=== PATIENT | male | born 1960 | race Caucasian/White ===

== ENCOUNTER 2018-04-01 06:42 | Observation (INO) ==
[2018-04-01 07:59] LABS: Basophils % 0.8 %; Eosinophils # 0.1 K/mcL (0.0-0.6); Eosinophils % 2.4 %; Hematocrit 29.6 % (37.5-50.1); Hemoglobin 9.5 g/dL (12.9-16.9); Immature Granulocytes % 0.3 % (0-4); Lymphocytes # 1.1 K/mcL (0.6-4.6); Lymphocytes % 29.5 %; Mean Corpuscular HGB Conc 32.1 g/dL (31.6-35.5); Mean Corpuscular Hemoglobin 29.8 pg (28.0-33.3); Mean Corpuscular Volume 92.8 fL (83.0-100.0); Monocytes # 0.6 K/mcL (0.0-1.3); Monocytes % 15.7 %; Neutrophils # 1.9 K/mcL (1.6-8.9); Platelet Count 153 K/mcL (140-400); Red Blood Count 3.19 M/mcL (4.19-5.50); Red Cell Distribution Width 16.4 % (11.5-14.5); Segmented Neutrophils % 51.3 %
[2018-04-01] MEDS ORDERED: *HR* FentaNYL (PF) 100 MCG/2 ML VIAL IVP ONE ×3 (08:06→10:40)
[2018-04-01] MEDS ORDERED: *HR* Midazolam HCl 2 MG/2 ML VIAL IVP ONE (08:06)
[2018-04-01] MEDS ORDERED: Ampicillin/Sulbactam 1,500 MG in 0.9 % Sodium Chloride Mini Bag 100 ML IVPB ONE (08:08)
[2018-04-01] MEDS ORDERED: Pantoprazole 40 MG VIAL IVP ONE (08:09)
[2018-04-01] MEDS ORDERED: Ondansetron 4 MG/2 ML VIAL IVP ONE (08:10)
[2018-04-01] MEDS ORDERED: Hydrocortisone Sodium Succ 100 MG/2 ML VIAL IVP ONE (08:11)
[2018-04-01] MEDS ORDERED: 0.9 % Sodium Chloride 1,000 ML ONE (08:27)
[2018-04-01] MEDS ORDERED: Isovue-300 50 ML VIAL IVP ONE (09:10)
--- NOTE | 2018-04-01 10:11 | Pre-Sedation Evaluation ---
Pre-sedation evaluation - Pre-sedation checklist Date of procedure: 04/01/18 Procedure: y-90 Recent Vitals: Last Vital Signs Temp 97.8 F 04/01/18 07:44 Pulse 51 04/01/18 09:50 Resp 23 04/01/18 09:50 BP 174/87 04/01/18 09:50 Pulse Ox 98 04/01/18 09:50 H&P (including ROS) documented in medical record: Yes Previous reaction to sedatives/anesthetics: No Dietary Status: NPO after Midnight Airway Assessment: Patient can open mouth completely, TMJ function normal, Micrognathia (under-bite, receding chin) absent, Neck with adequate range of motion Dentition: No loose teeth or bridges Possible difficult airway: No ASA Classification *see protocol: CLASS III-Severe systemic disease Plan of Care: Pt appropriate candidate for procedure/moderate/conscious sedation , Risks/benefits of procedure/sedation discussed w/ patient/family, If not NPO; Risk of intake outweiged by necessity to perform procedure Cardiac Registry (Cardio Only) - Functional Capacity - Clincal Frailty Scale
--- NOTE | 2018-04-01 10:14 | History & Physical Report ---
Date of Encounter: 04/01/18 Time of Encounter: 08:00 24 Hour HP Update - Instructions Instructions: If the History and Physical is less than 30 days old and was completed prior to A.M. admission and or procedure and has NOT been updated on calendar day of procedure please complete this update prior to performing procedure. - Update Patient reports changes in Medical Condition: No Changes in examination, assessment, or condition: No Changes in Medication: No Preop tests/diagnostics Reviewed: Yes Surgery Remains Indicated: Yes Consent for Planned Operative Procedure(s) Verified: Yes - Pre-Operative Checklist Preoperative Checklist Indicated: Yes Prophylactic Antibiotic Ordered: Yes Home Medications Include Beta Merlyn: No Is VTE Prophylaxis Indicated?: NO
[2018-04-01] MEDS ORDERED: Acetaminophen 325 MG TABLET PO PRN (10:16)
--- NOTE | 2018-04-01 10:16 | IR Procedure Note ---
Date of procedure: 04/01/18 Consent Obtained: Written consent Timeout: Correct patient and procedure verified, Correct site verified, Time out performed, Skin prep completed Local anesthetic: Lidocaine 1% Indications: Hepatocellular carcinoma Procedure Performed: Y90 embolization, bland embolization Was there an commercial loan assistant present: No Site/Technique: R lobe y90, segmental branch left lobe bland embo Results/Findings: Worked well. Full dose delivered. Estimated blood loss (cc): 3 Complications: None; Tolerated procedure well Post Procedure Treatment Plan: Monitoring in VIR Specimen: N/a
[2018-04-01] MEDS ORDERED: *HR* FentaNYL (PF) 100 MCG/2 ML VIAL ONE (10:35)
[2018-04-01] MEDS ORDERED: *HR* HYDROmorphone (PF) 1 MG/ML SYRINGE ONE (11:15)
[2018-04-01] MEDS ORDERED: *HR* HYDROmorphone 2 MG/ML SYRINGE IVP ONE (11:35)
[2018-04-01] MEDS ORDERED: Naloxone 0.4 MG/ML INJ IVP PRN ×2 (14:29→14:34)
[2018-04-01] MEDS ORDERED: Ondansetron 4 MG/2 ML VIAL IVP PRN (14:34)
[2018-04-01] MEDS ORDERED: OXYCODONE Oral CONC 10 MG/0.5 ML ORAL.SYG SL PRN ×2 (14:34)
[2018-04-01] MEDS: Metoprolol XL (24 HR) Succ 25 MG TAB.ER.24H PO SCH (15:48)
--- NOTE | 2018-04-01 18:42 | Internal Med History&Physical ---
Date of Encounter: 04/01/18 Time of Encounter: 12:00 Internal Medicine - H&P: HPI Chief complaint: Abd pain Admitted From: Home Plans for Post Hospital Care: Home History of present illness: Mr. Coronel is a 58 year old male directly admitted from IR for abdominal pain. Past medical history is significant for hep C, cirrhosis, and HCC. Patient has HCC and underwent embolization today. After procedure, patient complaining of abdominal pain, need IV pain medications. Patient complaint of epigastric area pain without rebound or guarding on exam. Patient said he does not have similar pain before the procedure. Patient denies nausea, vomiting. IR Dr Alcazar called me and plan to keep patient in hospital for further observation. IR will follow up and back up. Discussed with Dr Alcazar, after embolization, it is common to have abd pain or low fever. IR will reevaluate pt tomorrow morning. Past Med Surg Social Fam HX - Past Medical History Medical history: arthritis, cirrhosis, COPD, coronary artery disease, GERD, hepatitis, hyperlipidemia, hypertension, liver disease, myocardial infarction, other Additional medical history: LIVER MASS,erectile dysfunction,iron deficiency, recurrent GI bleed,chronic liver disease,history of alcohol abuse,status post coronary artery stent placement,anemic,history of basal cell carcinoma -left medial cheek Psychiatric history: no psych history - Past Surgical History Surgical History: angioplasty/stent, colectomy, colostomy, herniorrhaphy, other Additional surgical history: cardiac cath,bladder surgery,ventral hernia repair, fistula repeat,Justin's Procedure/cystorrhaphy,EGD/colonoscopy,colostomy reversal sigmoid to rectum anastomosis,debridement of anterior abdominal wall wound,fibrin gluing of entercutaneous fistula, - Social History Smoking Status: Current every day smoker Smokeless Tobacco Status: Yes (1) Alcohol use: heavy Drug use: none - Family History Mother Living Status: Hx Family Cardiac Disorders: Yes Father Living Status: Age at : 82 Cause of : Colon cancer Hx Family Cardiac Disorders: Yes (CHF and CAD) Hx Family Cancer: Yes Brother Living Status: Still Living Hx Family Cardiac Disorders: Yes (Open heart surgery) Internal Medicine - H&P: Meds Aspirin [Lo-Dose Aspirin EC] 81 mg PO DAILY 04/01/18 [History] Atorvastatin Calcium [Lipitor] 20 mg PO HS 04/01/18 [History] Metoprolol XL (24 HR) Succ [Toprol Xl] 25 mg PO DAILY 04/01/18 [History] Omeprazole [PriLOSEC] 20 mg PO DAILY 04/01/18 [History] 3 Allergy/AdvReac Type Severity Reaction Status Date / Time No Known Allergies Allergy Verified 04/01/18 14:22 All Systems PM: A 10-system review of systems was performed and is negative for pertinent findings except as documented above in the HPI. - Constitutional Vitals: Temp Pulse Resp BP Pulse Ox 97.8 F 55 18 190/90 95 04/01/18 15:24 04/01/18 15:24 04/01/18 15:24 04/01/18 15:13 04/01/18 15:24 General appearance: Present: A&O X 3, no acute distress, answers questions appropriately - Head Head exam: Present: atraumatic, normocephalic - Eye Eye exam: Present: PERRL, conjuntiva pink, sclera anicteric Pupils: Present: PERRL - Neck Neck exam general surgery: Present: supple, trachea midline. Absent: lymphadenopathy - Respiratory Respiratory exam: Present: CTAB. Absent: accessory muscle use, rales, rhonchi, wheezes - Cardiovascular Cardiovascular exam: Present: RRR, +S1, +S2. Absent: diastolic murmur, gallop, rubs, systolic murmur - GI/Abdominal GI/Abdominal exam: Present: normal bowel sounds, soft, tenderness (Mild epigastric tenderness without rebound or guarding), no peritoneal signs. Absent : distended - Extremities Exam Extremities exam: Present: warm, radial pulses palpable and symmetrical. Absent : calf tenderness, cyanotic, pedal edema - Neurological Exam Neurological exam: Present: CN II-XII intact, oriented X3, no focal deficits. Absent: pronater drift, facial droop, speech deficit - Skin Skin exam: Present: dry, intact Internal Med - H&P Results - Labs CBC & Chem 7: 04/01/18 07:43 Labs: Short CBC 04/01/18 Range/Units 07:43 WBC 3.7 L (4.3-11.1) K/mcL Hgb 9.5 L (12.9-16.9) g/dL Hct 29.6 L (37.5-50.1) % Plt Count 153 (140-400) K/mcL Neutrophils # 1.9 (1.6-8.9) K/mcL - Impressions ITS Impressions Embolization 04/01/18 00:00 IMPRESSION: Successful radioembolization of the right hepatic lobe as described above. Successful bland embolization of a segmental 8 branch arising from the left hepatic artery. D/ /01/2018 12:48:32 Janak Alcazar MD / tracy Interpreting Provider: Janak Alcazar MD Embolization 04/01/18 00:00 IMPRESSION: Successful radioembolization of the right hepatic lobe as described above. Successful bland embolization of a segmental 8 branch arising from the left hepatic artery. D/ /01/2018 12:48:32 Janak Alcazar MD / tracy Interpreting Provider: Janak Alcazar MD Guidance Ultrasound 04/01/18 00:00 IMPRESSION: Successful radioembolization of the right hepatic lobe as described above. Successful bland embolization of a segmental 8 branch arising from the left hepatic artery. D/ /01/2018 12:48:32 Janak Alcazar MD / tracy Interpreting Provider: Janak Alcazar MD SPECT Scan-Liver Nuclear Medicine 04/01/18 00:00 IMPRESSION: No concerning extrahepatic uptake identified following radio embolization. Dominant uptake in the right hepatic lobe with focal areas of concentrated increased radiotracer uptake in this patient with hepatocellular carcinoma. D/ / Janak Alcazar MD / Janak Alcazar MD Interpreting Provider: Janak Alcazar MD - Assessment and plan (1) Abdominal pain Current Visit: Yes Status: Acute Assessment and plan: Most likely due to HCC embolization. - Place patient on continuous cardiac and pulmonary monitoring. - Pain management as needed - IR consult to follow. - Repeat lab in a.m. Qualifiers: Abdominal location: epigastric Qualified Code(s): R10.13 - Epigastric pain (2) HCC (hepatocellular carcinoma) Current Visit: No Status: Acute Assessment and plan: S/P embolization, follow-up as outpatient after discharge (3) Hypertension Current Visit: No Status: Chronic Assessment and plan: Continue home medications. Hydralazine IV as needed Qualifiers: Hypertension type: essential hypertension Qualified Code(s): I10 - Essential (primary) hypertension - Time Spent With Patient Total time spent is greater than 50% in coordination of care (as documented) at patient's floor/unit and/or counseling patient: 30 min 25 - 35 minutes
[2018-04-02] MEDS: Ibuprofen 400 MG TABLET PO PRN ×2 (00:14→07:58)
[2018-04-02 06:09] LABS: Basophils % 0.3 %; Eosinophils # 0.1 K/mcL (0.0-0.6); Hematocrit 25.4 % (37.5-50.1); Hemoglobin 8.1 g/dL (12.9-16.9); Immature Granulocytes % 0.3 % (0-4); Lymphocytes # 0.9 K/mcL (0.6-4.6); Lymphocytes % 25.7 %; Mean Corpuscular HGB Conc 31.9 g/dL (31.6-35.5); Mean Corpuscular Hemoglobin 28.6 pg (28.0-33.3); Mean Corpuscular Volume 89.8 fL (83.0-100.0); Mean Platelet Volume 11.1 fL (9.4-12.4); Monocytes # 0.4 K/mcL (0.0-1.3); Monocytes % 12.3 %; Neutrophils # 2.1 K/mcL (1.6-8.9); Platelet Count 120 K/mcL (140-400); Red Blood Count 2.83 M/mcL (4.19-5.50); Red Cell Distribution Width 16.6 % (11.5-14.5); Segmented Neutrophils % 59.4 %
[2018-04-02 06:34] LABS: Alanine Aminotransferase 32 Units/L (7-52); Albumin 3.1 g/dL (3.5-5.7); Albumin/Globulin Ratio 1.1 (1.1-2.2); Alkaline Phosphatase 93 Units/L (34-104); Aspartate Amino Transferase 56 Units/L (13-39); BUN/Creatinine Ratio 23 (6-26); Bilirubin,Total 0.5 mg/dL (0.3-1.0); Blood Urea Nitrogen 13 mg/dL (8-23); Carbon Dioxide 23 mEq/L (23-29); Chloride 105 mEq/L (98-107); Globulin 2.8 g/dL (2.4-3.5); Glucose 168 mg/dL (70-105); Osmolality,Calculated 282 (280-300); Potassium 3.6 mEq/L (3.5-5.1); Sodium 134 mEq/L (136-145); Total Protein 5.9 g/dL (6.4-8.9); eGFR For Non-African Americans > 60 (> 60)
[2018-04-02 06:37] VITALS: BP 133/73
[2018-04-02] MEDS: Metoprolol XL (24 HR) Succ 25 MG TAB.ER.24H PO SCH (07:59)
[2018-04-02] MEDS ORDERED: Aspirin Enteric Coated 81 MG Tablet PO SCH (09:00)
--- NOTE | 2018-04-02 10:05 | Discharge Summary ---
<Bora Carmen - Last Filed: 04/02/18 16:18> - NOTES TO OUTPATIENT PROVIDER Notes to Outpatient Provider: Patient's post-procedural pain abdominal pain completely resolved with Motrin. He states he will pick this up over the counter. Date of Encounter: 04/02/18 Time of Encounter: 10:03 - Discharge Diagnosis (1) Abdominal pain Priority: Primary Status: Acute Qualifiers: Abdominal location: epigastric Qualified Code(s): R10.13 - Epigastric pain (2) HCC (hepatocellular carcinoma) Priority: Secondary Status: Acute (3) Cirrhosis Priority: Secondary Status: Chronic Qualifiers: Hepatic cirrhosis type: alcoholic cirrhosis Ascites presence: without ascites Qualified Code(s): K70.30 - Alcoholic cirrhosis of liver without ascites Hospital course: Mr. 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 Patient received moderate sedation and had successful embolization of the right hepatic lobe as well as a segmental branch of the left hepatic artery that was also found to be feeding the mass. Patient felt feverish and developed abdominal pain after the procedure, afebrile with elevated blood pressure readings. Internal medicine was consulted to manage, pain was relieved with Ibuprofen, received hydralizine for elevated~BP. Patient now normotensive, abdominal pain resolved. IR did come by and see patient and confirmed patient was stable for discharge. Discharge discussed with: patient, nurse, systems security consultant - Time Spent with Patient Total time spent providing and/or coordinating discharge services: Less than 30 minutes - Discharge Medications Home Medications: Aspirin [Lo-Dose Aspirin EC] 81 mg PO DAILY 04/01/18 [History] Atorvastatin Calcium [Lipitor] 20 mg PO HS 04/01/18 [History] Metoprolol XL (24 HR) Succ [Toprol Xl] 25 mg PO DAILY 04/01/18 [History] Omeprazole [PriLOSEC] 20 mg PO DAILY 04/01/18 [History] Allergies/Adverse Reactions: 3 Allergy/AdvReac Type Severity Reaction Status Date / Time No Known Allergies Allergy Verified 04/01/18 14:22 Date of admission: 04/01/18 13:04 Primary care physician: Kenzie Junior MD Consults: 04/01/18 14:41 Consult to Interventional Radiology [CONS] Routine Consulting Provider: Radiology Interventional Cols Reason for Consult: S/P embolization Call Completed: Yes Discharging clinician: Bora Carmen Anticipated date of discharge: 04/02/18 - Constitutional Vitals: Temp Pulse Resp BP Pulse Ox 97.8 F 57 18 133/73 95 04/02/18 06:36 04/02/18 06:36 04/02/18 06:36 04/02/18 06:36 04/02/18 06:36 General appearance: Present: cooperative, no acute distress, answers questions appropriately - Head Head exam: Present: atraumatic, normocephalic - Eye Eye exam: Present: PERRL, conjuntiva pink, sclera anicteric Pupils: Present: PERRL - Neck Neck exam general surgery: Present: supple, trachea midline. Absent: lymphadenopathy - Respiratory Respiratory exam: Present: CTAB. Absent: accessory muscle use, rales, rhonchi, wheezes - Cardiovascular Cardiovascular exam: Present: RRR, +S1, +S2. Absent: diastolic murmur, gallop, rubs, systolic murmur - GI/Abdominal GI/Abdominal exam: Present: normal bowel sounds, soft, no peritoneal signs. Absent: distended, tenderness - Extremities Exam Extremities exam: Present: warm, radial pulses palpable and symmetrical. Absent : calf tenderness, cyanotic, pedal edema - Neurological Exam Neurological exam: Present: alert, no focal deficits. Absent: pronater drift, facial droop, speech deficit - Skin Skin exam: Present: dry, intact - Patient Status Disposition: Home, Self-Care Condition: Good Functional capacity at discharge: independent ambulation Overall status at discharge: patient is back to baseline - Discharge Instructions Instructions: Acute Abdominal Pain (DC) Follow Up With: Eri Brown MORGUE TECHNICIAN [Advanced Practice Nurse] - 04/09/18 2:15 pm (Office is going to call the patient today.) Additional Instructions: Lab work in 3 days. No driving for one week. No lifting more than 5 lbs for one week. Hold site when coughing. - Diet and Activity Activity: increase activity as tolerated Diet: advance to your usual diet <Adrianna Steiner - Last Filed: 04/02/18 19:00> Date of Encounter: 04/02/18 - Discharge Diagnosis (1) Hypertension Status: Chronic Qualifiers: Hypertension type: essential hypertension Qualified Code(s): I10 - Essential (primary) hypertension (2) HCC (hepatocellular carcinoma) Status: Acute (3) Abdominal pain Status: Acute Qualifiers: Abdominal location: epigastric Qualified Code(s): R10.13 - Epigastric pain Hospital course: Mr. Coronel is a 58 year old male - Time Spent with Patient Total time spent providing and/or coordinating discharge services: Date of admission: 04/01/18 13:04 Primary care physician: Kenzie Junior MD Consults: 04/01/18 14:41 Consult to Interventional Radiology [CONS] Routine Consulting Provider: Radiology Interventional Cols Reason for Consult: S/P embolization Call Completed: Yes - Constitutional Vitals: Temp Pulse Resp BP Pulse Ox 97.8 F 57 18 133/73 95 04/02/18 06:36 04/02/18 06:36 04/02/18 06:36 04/02/18 06:36 04/02/18 06:36 - Attending Attestation I examined this patient and my medical decision-making was reviewed with the Resident Physician Dr. Pollack. I agree with the documented findings, disposition and treatment plan as described except to the extent set forth below.
== END 2018-04-02 10:49 | disposition home or self-care (01) ==
LOC: 3BNU 06:42 → INTRAD 06:42
PROVIDERS: ADMIT Internal Medicine; ATTEND Internal Medicine

== ENCOUNTER 2018-05-20 07:07 | Observation (INO) ==
[2018-05-20 08:51] LABS: INR 1.1
[2018-05-20 08:54] LABS: Activated Partial Thrombo Time 29.6 Seconds (26.0-36.0)
[2018-05-20 08:55] LABS: Hematocrit 21.7 % (37.5-50.1); Hemoglobin 6.4 g/dL (12.9-16.9); Mean Corpuscular HGB Conc 29.5 g/dL (31.6-35.5); Mean Corpuscular Hemoglobin 24.8 pg (28.0-33.3); Mean Corpuscular Volume 84.1 fL (83.0-100.0); Mean Platelet Volume 12.4 fL (9.4-12.4); Platelet Count 165 K/mcL (140-400); Red Blood Count 2.58 M/mcL (4.19-5.50); Red Cell Distribution Width 16.6 % (11.5-14.5)
[2018-05-20 09:05] LABS: BUN/Creatinine Ratio 19 (6-26); Blood Urea Nitrogen 12 mg/dL (8-23); Calcium 8.4 mg/dL (8.6-10.3); Carbon Dioxide 21 mEq/L (23-29); Chloride 109 mEq/L (98-107); Glucose 195 mg/dL (70-105); Magnesium 1.8 mg/dL (1.6-2.6); Osmolality,Calculated 287 (280-300); Sodium 136 mEq/L (136-145); eGFR For Non-African Americans > 60 (> 60)
[2018-05-20 09:36] LABS: Anisocytosis 1+ (Not Present); Lymphocytes # 0.7 K/mcL (0.6-4.6); Monocytes # 0.3 K/mcL (0.0-1.3); Neutrophils # 1.1 K/mcL (1.6-8.9); Platelet Estimate Normal (Normal); Polychromasia 1+ (Not Present)
[2018-05-20 09:37] LABS: Hypochromasia Present (Not Present)
[2018-05-20] MEDS ORDERED: Naloxone 0.4 MG/ML INJ IVP PRN (10:02)
--- NOTE | 2018-05-20 10:07 | Emergency Department Note ---
Disposition Clinical Impression: Anemia Disposition: Admitted As Inpatient Condition: Fair Referrals: Eri Brown [employer] [Primary Care Provider] - Time of Disposition: 10:27 Recheck wound or abnormal lab - General Chief Complaint: ED Recheck/Abnormal Lab/Rx Stated Complaint: Abnormal Labs Low Hemoglobin Time Seen by Provider: 05/20/18 07:19 Source: patient Mode of arrival: ambulatory Limitations: no limitations Nursing Notes Reviewed: Yes Vital Signs Reviewed: Yes - History of Present Illness HPI Narrative: Patient presents emergency room today for evaluation of anemia. Patient has a chronic issue of anemia that required blood transfusion secondary to liver cancer. Patient denies any blood in his stool dark colored stool bleeding in his urine or hematemesis. Patient denies any other symptoms or complaints he just had a random blood draw completed secondary to his primary care wanting evaluation and his hemoglobin was low. Pt Subjective Complaint: abnormal lab(s) Symptoms Since Prior Visit: no new symptoms Associated symptoms: none - Related Data Home Medications Medication Instructions Recorded Confirmed Aspirin [Lo-Dose Aspirin EC] 81 mg PO DAILY 04/01/18 05/20/18 Atorvastatin Calcium [Lipitor] 20 mg PO HS 04/01/18 05/20/18 Metoprolol XL (24 HR) Succ [Toprol 25 mg PO DAILY 04/01/18 05/20/18 Xl] Omeprazole [PriLOSEC] 20 mg PO DAILY PRN 04/01/18 05/20/18 Allergies Allergy/AdvReac Type Severity Reaction Status Date / Time No Known Allergies Allergy Verified 05/20/18 09:33 All systems ED: reviewed and negative except as stated. Review of Systems: As Per HPI Constitutional: Denies: fever, chills, weakness Cardiovascular: Denies: chest pain, palpitations, dyspnea on exertion, orthopnea , edema Respiratory: Denies: cough, dyspnea, wheezes Gastrointestinal: Denies: abdominal pain, nausea, vomiting, diarrhea, constipation, hematemesis, melena, hematochezia Genitourinary: Denies: urgency, dysuria Musculoskeletal: Denies: back pain, neck pain Neurological: Denies: headache, weakness Psychiatric: Denies: anxiety Hematological/Lymphatic: Denies: easy bleeding, easy bruising Past Medical History - Past Medical History Attestation: Yes The following information was validated with the patient. Source: patient Medical history: Reports: arthritis, cirrhosis, COPD, coronary artery disease, GERD, hepatitis, hyperlipidemia, hypertension, liver disease, myocardial infarction, other Surgical history: Reports: angioplasty/stent, colectomy, colostomy, herniorrhaphy, other Psychiatric history: Reports: no psych history - Social History Smoking Status: Current every day smoker Smokeless Tobacco Status: Yes (1) Alcohol use: Reports: heavy Drug use: Reports: none Physical Exam - General Limitations: no limitations - Head Head exam: atraumatic, normocephalic, normal inspection - Eye Eye exam: Present: normal appearance, PERRL, EOMI, other - ENT ENT exam: normal exam, normal oropharynx, mucous membranes moist - Neck Neck exam: Present: normal inspection, full ROM, trachea midline - Chest Chest inspection: Present: normal inspection, symmetric chest wall rise - Respiratory Respiratory exam: Present: normal lung sounds bilaterally - Cardiovascular Cardiovascular exam: Present: regular rate, normal rhythm, normal heart sounds - Abdominal Exam Abdominal exam: Present: soft, distention, normal bowel sounds. Absent: tenderness, guarding, rebound, diminished bowel sounds, hyperactive bowel sounds , trauma - Extremities Exam Extremities exam: Present: normal inspection, full ROM, normal capillary refill. Absent: tenderness, pedal edema - Back Exam Back exam: Present: normal inspection, full ROM. Absent: tenderness - Neurological Exam Neurological exam: Present: alert, oriented X3, CN II-XII intact, normal gait - Skin Skin exam: Present: warm, dry, intact, pallor Course Course Narrative: 58-year-old male presents emergency room for complaint of abnormal lab. Have blood drawn yesterday and had a hemoglobin of 6.4. Patient is a long-standing history of chronic anemia that has multiple antibodies for transfusion. Vital signs are stable. Patient denies any other complaints. He has not had any hematemesis, coffee-ground emesis, hematochezia, melena. He says this is a chronic issue with his blood count trickles down and then he requires a transfusion. He has known liver disease and cancer that he is in the process of determining whether or not he is a candidate for liver transplant. Patient will have repeat labs and coagulation studies completed here today along with type and screen. Blood transfusion will be ordered based on review the labs from yesterday. Patient has no other acute issues at this point. Lungs are clear heart is regular. Conjunctiva is pale. His skin is normal and presentation has good pulses in the bilateral upper and lower extremities. Disposition will be determined once blood typing and labs are resulted. No other acute issues at this time. - Reevaluation(s) Reevaluation #1: Patient found to have a hemoglobin of 6.4 again here today which is stable in comparison to the previous. Patient will have 2 units of blood transfused once they are available. According to the blood bank that takes approximately 24 hours to get his blood secondary to the antibodies. Because of this the patient will be admitted to the hospital for continuation of care. Hospitalist Dr. Mcnulty and I reviewed the case at length. He has no other questions or concerns. Patient is otherwise clinically stable and will be admitted for continuation of care in a blood transfusion Time: 10:18 Vital Signs Temperature 98.3 F 05/20/18 07:09 Pulse Rate 83 05/20/18 07:09 Respiratory Rate 17 05/20/18 07:09 Blood Pressure 153/85 05/20/18 07:09 O2 Sat by Pulse Oximetry 100 05/20/18 07:09 Temperature 98.3 F 05/20/18 07:27 Pulse Rate 74 05/20/18 08:37 Respiratory Rate 18 05/20/18 08:37 Blood Pressure 119/64 05/20/18 08:37 O2 Sat by Pulse Oximetry 100 05/20/18 08:37 Oxygen Delivery Oxygen Delivery Room Air Recheck wound or abnormal lab - MDM Narrative Medical decision making narrative: Chronic anemia, blood transfusion - Medical Records Medical records reviewed: Yes I reviewed the patient's medical records. - Lab Data Lab results reviewed: Yes I reviewed the patient's lab results. Result diagrams: 05/20/18 08:31 05/20/18 08:31 Lab Results 05/20/18 05/20/18 05/20/18 Range/Units 08:31 08:31 08:31 WBC 2.2 L (4.3-11.1) K/mcL RBC 2.58 L (4.19-5.50) M/mcL Hgb 6.4 L (12.9-16.9) g/dL Hct 21.7 L (37.5-50.1) % MCV 84.1 (83.0-100.0) fL MCH 24.8 L (28.0-33.3) pg MCHC 29.5 L (31.6-35.5) g/dL RDW 16.6 H (11.5-14.5) % Plt Count 165 (140-400) K/mcL MPV 12.4 (9.4-12.4) fL Immature Gran % Test Not Performed Seg Neutrophils % 50.0 % Band Neutrophils % 2.0 (0-4) % Lymphocytes % 30.0 % Monocytes % 14.0 % Eosinophils % 2.0 % Basophils % 2.0 % Neutrophils # 1.1 L (1.6-8.9) K/mcL Lymphocytes # 0.7 (0.6-4.6) K/mcL Monocytes # 0.3 (0.0-1.3) K/mcL Eosinophils # 0.0 (0.0-0.6) K/mcL Basophils # 0.0 (0.0-0.2) K/mcL Platelet Estimate Normal (Normal) Polychromasia 1+ A (Not Present) Hypochromasia Present A (Not Present) Anisocytosis 1+ A (Not Present) PT 12.0 (9.4-12.1) Seconds INR 1.1 APTT 29.6 (26.0-36.0) Seconds Sodium 136 (136-145) mEq/L Potassium 4.0 (3.5-5.1) mEq/L Chloride 109 H (98-107) mEq/L Carbon Dioxide 21 L (23-29) mEq/L BUN 12 (8-23) mg/dL Creatinine 0.62 L (0.70-1.30) mg/dL Est GFR ( Amer) > 60 (> 60) Est GFR (Non-Af Amer) > 60 (> 60) BUN/Creatinine Ratio 19 (6-26) Glucose 195 H (70-105) mg/dL Calculated Osmolality 287 (280-300) Lactic Acid (0.5-2.2) mmol/L Calcium 8.4 L (8.6-10.3) mg/dL Magnesium 1.8 (1.6-2.6) mg/dL Blood Type Antibody Screen MTS Gel Crossmatch 05/20/18 05/20/18 Range/Units 08:31 08:31 WBC (4.3-11.1) K/mcL RBC (4.19-5.50) M/mcL Hgb (12.9-16.9) g/dL Hct (37.5-50.1) % MCV (83.0-100.0) fL MCH (28.0-33.3) pg MCHC (31.6-35.5) g/dL RDW (11.5-14.5) % Plt Count (140-400) K/mcL MPV (9.4-12.4) fL Immature Gran % Seg Neutrophils % % Band Neutrophils % (0-4) % Lymphocytes % % Monocytes % % Eosinophils % % Basophils % % Neutrophils # (1.6-8.9) K/mcL Lymphocytes # (0.6-4.6) K/mcL Monocytes # (0.0-1.3) K/mcL Eosinophils # (0.0-0.6) K/mcL Basophils # (0.0-0.2) K/mcL Platelet Estimate (Normal) Polychromasia (Not Present) Hypochromasia (Not Present) Anisocytosis (Not Present) PT (9.4-12.1) Seconds INR APTT (26.0-36.0) Seconds Sodium (136-145) mEq/L Potassium (3.5-5.1) mEq/L Chloride (98-107) mEq/L Carbon Dioxide (23-29) mEq/L BUN (8-23) mg/dL Creatinine (0.70-1.30) mg/dL Est GFR ( Amer) (> 60) Est GFR (Non-Af Amer) (> 60) BUN/Creatinine Ratio (6-26) Glucose (70-105) mg/dL Calculated Osmolality (280-300) Lactic Acid 1.7 (0.5-2.2) mmol/L Calcium (8.6-10.3) mg/dL Magnesium (1.6-2.6) mg/dL Blood Type A POSITIVE Antibody Screen POSITIVE MTS Gel Crossmatch See Detail - Radiology Data Radiology results reviewed: Yes I reviewed the patient's radiology results. X-ray is unremarkable for acute intrathoracic related etiology - EKG Data EKG attestation: Yes I reviewed and interpreted this EKG. EKG results narrative: EKG shows sinus rhythm with heart rate of 71. SD interval 196. QTC of 410. QTC of 446. Intermittent P ACEs are noted on evaluation but otherwise no acute signs of ST segment elevation or abnormality. No acute signs of WPW or Brugada. T-wave inversion is noted in aVL that is chronic from an EKG on . No other acute morphology issues. Preston appears to be normal. Critical Care Time Critical Care Time: Yes Total Critical Care Time: 35 Attestation: Critical care performed: Time is exclusive of separately billable procedures. Time includes: direct patient care, patient reassessment, coordination of patient care, interpretation of data (laboratory data, radiology data, and respiratory data), review of patient's medical records, medical consultation and documentation of patient care. Procedures included in critical care time: Procedures excluded from critical care time:
--- NOTE | 2018-05-20 10:43 | Internal Med History&Physical ---
Date of Encounter: 05/20/18 Time of Encounter: 10:25 Internal Medicine - H&P: HPI Chief complaint: Generalized weakness, low hemoglobin levels Admitted From: Emergency Dept Plans for Post Hospital Care: Home History of present illness: Mr. Coronel is a 58 year old male patient with history of hepatocellular carcinoma status post chemoembolization, liver cirrhosis status post TIPS, and chronic anemia related to his carcinoma presented to the ER with complaints of low hemoglobin levels and generalized weakness. Patient had blood work done Yesterday and was called by Dr. Bianchi to come to the ER for blood transfusion. He denies any blood in the stools. He has had extensive workup in the past but so far no source of bleeding has been identified. He had an upper GI endoscopy and colonoscopy done in February this year which was negative for any active bleeding. He denies any hematemesis or melena. No chest pain. No palpitations. No abdominal pain. He has chronic umbilical hernia from intra -abdominal surgery for colon resection for diverticulitis. Past Med Surg Social Fam HX - Past Medical History Attestation: Yes The following information was validated with the patient. Source: patient Medical history: arthritis, cirrhosis, COPD, coronary artery disease, GERD, hepatitis, hyperlipidemia, hypertension, liver disease, myocardial infarction, other Additional medical history: LIVER MASS,erectile dysfunction,iron deficiency, recurrent GI bleed,chronic liver disease,history of alcohol abuse,status post coronary artery stent placement,anemic,history of basal cell carcinoma -left medial cheek Psychiatric history: no psych history - Past Surgical History Surgical History: angioplasty/stent, colectomy, colostomy, herniorrhaphy, other Additional surgical history: cardiac cath,bladder surgery,ventral hernia repair, fistula repeat,Justin's Procedure/cystorrhaphy,EGD/colonoscopy,colostomy reversal sigmoid to rectum anastomosis,debridement of anterior abdominal wall wound,fibrin gluing of entercutaneous fistula, - Social History Smoking Status: Current every day smoker Smokeless Tobacco Status: Yes (1) Alcohol use: heavy Drug use: none - Family History Mother Living Status: Hx Family Cardiac Disorders: Yes Father Living Status: Hx Family Cardiac Disorders: Yes (CHF and CAD) Hx Family Cancer: Yes Brother Living Status: Still Living Hx Family Cardiac Disorders: Yes (Open heart surgery) Internal Medicine - H&P: Meds Aspirin [Lo-Dose Aspirin EC] 81 mg PO DAILY 04/01/18 [History] Atorvastatin Calcium [Lipitor] 20 mg PO HS 04/01/18 [History] Metoprolol XL (24 HR) Succ [Toprol Xl] 25 mg PO DAILY 04/01/18 [History] Omeprazole [PriLOSEC] 20 mg PO DAILY PRN 04/01/18 [History] 3 Allergy/AdvReac Type Severity Reaction Status Date / Time No Known Allergies Allergy Verified 05/20/18 09:33 All Systems PM: A 10-system review of systems was performed and is negative for pertinent findings except as documented above in the HPI. - Constitutional Constitutional: fatigue, malaise, weakness, no chills, no fever(s), no night sweats - EENT Eyes: no change in vision, no discharge, no pain, no photophobia Ears: no ear discharge, no ear pain, no tinnitus Nose, mouth and throat: no dysphagia, no nasal discharge, no neck pain, no sore throat - Cardiovascular Cardiovascular ROS IM: no chest pain, no diaphoresis, no dyspnea, no lightheadedness, no palpitations, no syncope - Respiratory Respiratory: no cough, no dyspnea, no wheezing, no excessive phlegm production - Gastrointestinal Gastrointestinal: no abdominal pain, no diarrhea, no hematemesis, no hematochezia, no melena, no nausea, no vomiting - Musculoskeletal Musculoskeletal ROS IM: no numbness, no tingling - Integumentary Integumentary IM: no rash, no unusual bruising - Neurological Neurological ROS: no confusion, no convulsions, no focal weakness, no numbness, no tingling, no tremor(s) - Constitutional Vitals: Temp Pulse Resp BP Pulse Ox 98.3 F 74 18 119/64 100 05/20/18 07:27 05/20/18 08:37 05/20/18 08:37 05/20/18 08:37 05/20/18 08:37 General appearance: Present: cooperative, A&O X 3, pleasant, answers questions appropriately Exam: General: Patient is alert, no acute distress, oriented x 3 Head: atraumatic, normocephalic, Eye: normal appearance, PERRL, no scleral icterus, no conjunctival injection Neck: normal inspection, trachea midline, full ROM, no carotid bruits Chest: normal inspection, symmetric chest rise Respiratory: Good respiratory effort. Normal breath sounds. No wheezing or crackles. Cardiovascular: Regular rate and rhythm. s1 and s2 normal No clicks, rubs, gallops, or murmurs. No pedal edema Abdomen: Abdomen is soft, nontender. Umbilical hernia present. Easily reducible. Bowel sounds are present Musculoskeletal: Spontaneously moving all extremities Skin: warm, dry, intact. Pallor present Neuro: Alert oriented x 3 normal cranial nerves, no focal deficits Psych: Patient's affect is normal Internal Med - H&P Results - Labs CBC & Chem 7: 05/20/18 08:31 05/20/18 08:31 - Impressions Impressions Chest X-Ray 05/20/18 07:35 IMPRESSION: No acute pulmonary finding. D/ / Van Moon MD / Van Moon MD Interpreting Provider: Van Moon MD - Assessment and plan (1) Anemia Current Visit: Yes Status: Acute Assessment and plan: Patient with acute on chronic anemia with symptoms of fatigue and generalized weakness. Hemoglobin 6.4 today. Down from 9.1 in March. Checking stool for occult blood. Patient has had upper GI endoscopy and colonoscopy done in February with no signs of active bleeding. Most likely acute on chronic anemia related to underlying hepatocellular carcinoma and cirrhosis. Will transfuse 2 units PRBC. Patient does have RBC antibodies and may have difficulty in obtaining appropriate PRBC for transfusion. Moderate risk for complications. Qualifiers: Anemia type: other cause Other causes of anemia: chronic disease, neoplastic Qualified Code(s): D63.0 - Anemia in neoplastic disease (2) Cirrhosis Current Visit: Yes Status: Chronic Assessment and plan: Continue supportive care. Start multivitamins and folic acid supplements. Qualifiers: Hepatic cirrhosis type: alcoholic cirrhosis Ascites presence: without ascites Qualified Code(s): K70.30 - Alcoholic cirrhosis of liver without ascites (3) DVT prophylaxis Current Visit: Yes Status: Acute Assessment and plan: With SCDs (4) HCC (hepatocellular carcinoma) Current Visit: Yes Status: Chronic Assessment and plan: Chronic. Status post embolization. Not on any chemotherapy (5) Pancytopenia Current Visit: No Status: Chronic Assessment and plan: Related to hepatocellular carcinoma. Platelet counts are normal at this time. Patient does have low WBC and hemoglobin levels. (6) Red blood cell antibody positive Current Visit: Yes Status: Acute Assessment and plan: Management as above - Time Spent With Patient Total time spent is greater than 50% in coordination of care (as documented) at patient's floor/unit and/or counseling patient:
[2018-05-20] MEDS ORDERED: 0.9 % Sodium Chloride 500 ML ONE (12:56)
[2018-05-20] MEDS: Prenatal Vit/FA 1 EACH TABLET PO SCH (14:58)
[2018-05-20] MEDS ORDERED: Melatonin 3 MG TABLET PO PRN (21:57)
[2018-05-21 04:40] LABS: Basophils % 0.7 %; Eosinophils # 0.1 K/mcL (0.0-0.6); Eosinophils % 3.2 %; Hematocrit 22.9 % (37.5-50.1); Hemoglobin 7.1 g/dL (12.9-16.9); Immature Granulocytes % 0.4 % (0-4); Lymphocytes # 0.6 K/mcL (0.6-4.6); Lymphocytes % 21.9 %; Mean Corpuscular Hemoglobin 26.8 pg (28.0-33.3); Mean Corpuscular Volume 86.4 fL (83.0-100.0); Mean Platelet Volume 12.4 fL (9.4-12.4); Monocytes # 0.5 K/mcL (0.0-1.3); Monocytes % 16.3 %; Neutrophils # 1.6 K/mcL (1.6-8.9); Platelet Count 129 K/mcL (140-400); Red Blood Count 2.65 M/mcL (4.19-5.50); Red Cell Distribution Width 15.9 % (11.5-14.5); Segmented Neutrophils % 57.5 %
[2018-05-21 05:02] LABS: BUN/Creatinine Ratio 24 (6-26); Blood Urea Nitrogen 14 mg/dL (8-23); Calcium 8.4 mg/dL (8.6-10.3); Carbon Dioxide 24 mEq/L (23-29); Chloride 107 mEq/L (98-107); Glucose 197 mg/dL (70-105); Osmolality,Calculated 290 (280-300); Sodium 137 mEq/L (136-145); eGFR For Non-African Americans > 60 (> 60)
[2018-05-21] MEDS ORDERED: Iron Sucrose Complex 400 MG in 0.9 % Sodium Chloride 250 ML IVPB ONE (07:47)
--- NOTE | 2018-05-21 08:54 | Electrocardiograph Report ---
[employer] Test Date: 2018-05-20 Pat Name: Patrice Coronel Department: EXAM23 Room: 3B14 Gender: M Vat Packer: : [id number] Requested By: Stephen Yeager Order Number: [id number] Reading MD: Benji Garcia Measurements Intervals [place] Rate: 71 P: 36 MN: 196 QRS: 43 QRSD: 92 T: 68 QT: 410 QTc: 446 Interpretive Statements Sinus rhythm Atrial premature complex Low voltage, precordial leads Probable anteroseptal infarct, old Electronically Signed On 05-21-2018 8:52:23 EDT by Benji Garcia
[2018-05-21 09:06] LABS: Immature Reticulocyte % 15.6 % (11.0-38.0); Retculocyte # 0.04 M/mcL (0.05-0.10); Reticulocyte % 1.6 % (1.6-2.8)
[2018-05-21] MEDS: Metoprolol XL (24 HR) Succ 25 MG TAB.ER.24H PO SCH (09:14)
[2018-05-21] MEDS: Aspirin Enteric Coated 81 MG Tablet PO SCH (09:14)
[2018-05-21] MEDS: Prenatal Vit/FA 1 EACH TABLET PO SCH (09:14)
--- NOTE | 2018-05-21 10:47 | Internal Med Progress Note ---
Hospitalist Progress Note - Encounter Date of Encounter: 05/21/18 Time of Encounter: 10:45 - Subjective Interval History: Patient seen and examined in the room, he denies dizziness, lightheadedness, or syncope. He has no fever, chills, or night sweats. - Exam Vitals: Temp Pulse Resp BP Pulse Ox 98.3 F 60 17 146/83 98 05/21/18 07:27 05/21/18 07:27 05/21/18 07:27 05/21/18 07:27 05/21/18 07:27 Exam: General: Patient is alert, no acute distress, oriented x 3 Head: atraumatic, normocephalic, Eye: normal appearance, PERRL, no scleral icterus, no conjunctival injection Neck: normal inspection, trachea midline, full ROM, no carotid bruits Chest: normal inspection, symmetric chest rise Respiratory: Good respiratory effort. Normal breath sounds. No wheezing or crackles. Cardiovascular: Regular rate and rhythm. s1 and s2 normal No clicks, rubs, gallops, or murmurs. No pedal edema Abdomen: Abdomen is soft, nontender. Umbilical hernia present. Easily reducible. Bowel sounds are present Musculoskeletal: Spontaneously moving all extremities Skin: warm, dry, intact. Pallor present Neuro: Alert oriented x 3 normal cranial nerves, no focal deficits Psych: Patient's affect is normal - Assessment and Plan (1) Anemia Current Visit: Yes Status: Acute Assessment and Plan: 58-year-old male with past medical history of HCC, cirrhosis, and a chronic anemia presented with fatigue and generalized weakness. Hemoglobin 6.4 on admission. Down from 9.1 in March. Patient has had upper GI endoscopy and colonoscopy done in February with no signs of active bleeding. Most likely acute on chronic anemia related to underlying hepatocellular carcinoma and cirrhosis. Patient does have RBC antibodies and may have difficulty in obtaining appropriate PRBC for transfusion. He received 2 units PRBC on 05/20/2018, this morning hemoglobin 7.1. We will give patient another 2 unit PRBC today. (2) Cirrhosis Current Visit: No Status: Chronic Assessment and Plan: Continue supportive care. Start multivitamins and folic acid supplements. (3) Red blood cell antibody positive Current Visit: Yes Status: Acute Assessment and Plan: Management as above (4) HCC (hepatocellular carcinoma) Current Visit: Yes Status: Chronic Assessment and Plan: Chronic. Status post embolization. Not on any chemotherapy (5) DVT prophylaxis Current Visit: Yes Status: Acute Assessment and Plan: With SCDs - Time Spent with Patient Total time spent is greater than 50% in coordination of care (as documented) at patient's floor/unit and/or counseling patient: Greater than 35 minutes Plan of Care Discussed with: patient Internal Medicine: Result - Labs CBC & Chem 7: 05/21/18 03:24 05/21/18 03:24 Labs: Short CBC 05/21/18 Range/Units 03:24 WBC 2.8 L (4.3-11.1) K/mcL Hgb 7.1 L (12.9-16.9) g/dL Hct 22.9 L (37.5-50.1) % Plt Count 129 L (140-400) K/mcL Neutrophils # 1.6 (1.6-8.9) K/mcL BMP 05/21/18 03:24 Sodium 137 Potassium 4.0 Chloride 107 Carbon Dioxide 24 BUN 14 Creatinine 0.59 L Glucose 197 H Calcium 8.4 L - ABG Interpretation ABG results: PT/INR, D-dimer PT 12.0 Seconds (9.4-12.1) 05/20/18 08:31 Consult Discharge Plan - Plan Referrals: Eri Brown, [employer] [Primary Care Provider] - (1) Anemia Qualifiers: Anemia type: other cause Other causes of anemia: chronic disease, neoplastic Qualified Code(s): D63.0 - Anemia in neoplastic disease (2) Cirrhosis Qualifiers: Hepatic cirrhosis type: alcoholic cirrhosis Ascites presence: without ascites Qualified Code(s): K70.30 - Alcoholic cirrhosis of liver without ascites
[2018-05-21] MEDS ORDERED: 0.9 % Sodium Chloride 500 ML ONE (11:34)
[2018-05-22 04:15] LABS: Hematocrit 28.3 % (37.5-50.1); Mean Corpuscular HGB Conc 31.4 g/dL (31.6-35.5); Mean Corpuscular Volume 85.8 fL (83.0-100.0); Platelet Count 126 K/mcL (140-400)
[2018-05-22 04:23] LABS: Hemoglobin 8.9 g/dL (12.9-16.9)
[2018-05-22 07:06] VITALS: BP 132/77
[2018-05-22] MEDS: Aspirin Enteric Coated 81 MG Tablet PO SCH (09:19)
[2018-05-22] MEDS: Metoprolol XL (24 HR) Succ 25 MG TAB.ER.24H PO SCH (09:19)
[2018-05-22] MEDS: Prenatal Vit/FA 1 EACH TABLET PO SCH (09:19)
--- NOTE | 2018-05-22 09:35 | Discharge Summary ---
- NOTES TO OUTPATIENT PROVIDER Notes to Outpatient Provider: f/u with PCP and oncology as scheduled. Date of Encounter: 05/22/18 Time of Encounter: 09:33 - Discharge Diagnosis (1) Anemia Priority: Primary Status: Acute Qualifiers: Anemia type: other cause Other causes of anemia: chronic disease, neoplastic Qualified Code(s): D63.0 - Anemia in neoplastic disease (2) Cirrhosis Priority: Secondary Status: Chronic Qualifiers: Hepatic cirrhosis type: alcoholic cirrhosis Ascites presence: without ascites Qualified Code(s): K70.30 - Alcoholic cirrhosis of liver without ascites (3) Red blood cell antibody positive Priority: Secondary Status: Acute (4) HCC (hepatocellular carcinoma) Priority: Secondary Status: Chronic (5) DVT prophylaxis Priority: Primary Status: Acute Hospital course: Mr. Coronel is a 58 year old male patient with history of hepatocellular carcinoma status post chemoembolization, liver cirrhosis status post TIPS, and chronic anemia related to his carcinoma presented to the ER with complaints of low hemoglobin levels and generalized weakness. Patient had blood work done yesterday and was called by Dr. Bianchi to come to the ER for blood transfusion. He denies any blood in the stools. He has had extensive workup in the past but so far no source of bleeding has been identified. He had an upper GI endoscopy and colonoscopy done in February this year which was negative for any active bleeding. He denies any hematemesis or melena. No chest pain. No palpitations. No abdominal pain. He has chronic umbilical hernia from intra -abdominal surgery for colon resection for diverticulitis. His hemoglobin was 6.4 upon admission, he received a 2 unit PRBC, repeat hemoglobin 7.1, patient still symptomatic with dizziness. He received another 2 units PRBC and a repeat hemoglobin was 8.9. She will be discharged home today, he will continue follow-up with oncology and the PCP as scheduled. Discharge discussed with: patient Time spent discussing smoking cessation with patient: more than 10 minutes - Time Spent with Patient Total time spent providing and/or coordinating discharge services: Greater than 30 minutes - Discharge Medications Prescriptions: Ferrous Sulfate 324 mg PO BID #60 tablet.dr Becker Medications: Aspirin [Lo-Dose Aspirin EC] 81 mg PO DAILY 04/01/18 [History] Atorvastatin Calcium [Lipitor] 20 mg PO HS 04/01/18 [History] Metoprolol XL (24 HR) Succ [Toprol Xl] 25 mg PO DAILY 04/01/18 [History] Omeprazole [PriLOSEC] 20 mg PO DAILY PRN 04/01/18 [History] Ferrous Sulfate 324 mg PO BID #60 tablet. 05/22/18 [Rx] Allergies/Adverse Reactions: 3 Allergy/AdvReac Type Severity Reaction Status Date / Time No Known Allergies Allergy Verified 05/20/18 09:33 Date of admission: 05/20/18 10:19 Primary care physician: Eri Brown CNP Anticipated date of discharge: 05/22/18 - Constitutional Vitals: Temp Pulse Resp BP Pulse Ox 98.4 F 58 19 132/77 97 05/22/18 07:05 05/22/18 07:05 05/22/18 07:05 05/22/18 07:05 05/22/18 07:05 General appearance: Present: cooperative, A&O X 3, pleasant, answers questions appropriately Exam: General: Patient is alert, no acute distress, oriented x 3 Head: atraumatic, normocephalic, Eye: normal appearance, PERRL, no scleral icterus, no conjunctival injection Neck: normal inspection, trachea midline, full ROM, no carotid bruits Chest: normal inspection, symmetric chest rise Respiratory: Good respiratory effort. Normal breath sounds. No wheezing or crackles. Cardiovascular: Regular rate and rhythm. s1 and s2 normal No clicks, rubs, gallops, or murmurs. No pedal edema Abdomen: Abdomen is soft, nontender. Umbilical hernia present. Easily reducible. Bowel sounds are present Musculoskeletal: Spontaneously moving all extremities Skin: warm, dry, intact. Pallor present Neuro: Alert oriented x 3 normal cranial nerves, no focal deficits Psych: Patient's affect is normal - Patient Status Disposition: Home, Self-Care Condition: Fair Overall status at discharge: patient is back to baseline - Discharge Instructions Instructions: Anemia (DC) Follow Up With: Eri Brown CNP [Primary Care Provider] - (Requested a follow up appointment in 7-10 days. ) - Diet and Activity Activity: resume usual activities as tolerated Diet: advance to your usual diet
== END 2018-05-22 10:04 | disposition home or self-care (01) ==
LOC: EMEROOARM 07:07 → 3BNU 07:07
PROVIDERS: ADMIT Internal Medicine; ATTEND Internal Medicine

== ENCOUNTER 2018-09-09 15:40 | Inpatient (IN) ==
--- NOTE | 2018-09-09 16:07 | Emergency Department Note ---
Disposition Clinical Impression: Anemia Disposition: Admitted As Inpatient Referrals: Eri Brown, [employer] [Primary Care Provider] - Forms: ED Satisfaction Letter General Adult HPI - General Chief complaint: ED Recheck/Abnormal Lab/Rx Stated complaint: "sent from cancer center" Time Seen by Provider: 09/09/18 15:57 Source: patient Limitations: no limitations Nursing Notes Reviewed: Yes Vital Signs Reviewed: Yes - History of Present Illness Pain Scale: 0 - Related Data Home Medications Medication Instructions Recorded Confirmed RX: Atorvastatin Calcium [Lipitor] 20 mg PO DAILY 04/01/18 09/09/18 RX: Metoprolol XL (24 HR) Succ 25 mg PO DAILY 04/01/18 09/09/18 [Toprol Xl] RX: Omeprazole [PriLOSEC] 20 mg PO DAILY PRN 04/01/18 09/09/18 Previous Rx's Medication Instructions Recorded RX: Ferrous Sulfate 324 mg PO BID #60 tablet. 05/22/18 Allergies Allergy/AdvReac Type Severity Reaction Status Date / Time No Known Allergies Allergy Verified 09/09/18 14:51 Past Medical History - Past Medical History Medical history: Reports: arthritis, cirrhosis, COPD, coronary artery disease, GERD, hepatitis, hyperlipidemia, hypertension, liver disease, myocardial infarction, other Surgical history: Reports: angioplasty/stent, colectomy, colostomy, herniorrhaphy, other Psychiatric history: Reports: no psych history - Social History Smoking Status: Current every day smoker Smokeless Tobacco Status: No Alcohol use: Reports: none Drug use: Reports: none Physical Exam - General Limitations: no limitations General appearance: alert Course Vital Signs Temperature 97.9 F 09/09/18 15:54 Pulse Rate 89 09/09/18 15:54 Respiratory Rate 16 09/09/18 15:54 Blood Pressure 146/79 09/09/18 15:54 O2 Sat by Pulse Oximetry 98 09/09/18 15:54 Temperature 97.9 F 09/09/18 15:54 Pulse Rate 65 09/09/18 17:27 Respiratory Rate 16 09/09/18 15:54 Blood Pressure 117/74 09/09/18 17:27 O2 Sat by Pulse Oximetry 100 09/09/18 17:27 Oxygen Delivery Oxygen Delivery Room Air Medical Decision Making - Lab Data Lab Results 09/09/18 Range/Units 14:24 Total Bilirubin 0.4 (0.3-1.0) mg/dL Direct Bilirubin 0.1 (0.0-0.2) mg/dL Indirect Bilirubin 0.3 (0.0-1.2) mg/dL AST 45 H (13-39) Units/L ALT 28 (7-52) Units/L Alkaline Phosphatase 87 (34-104) Units/L Serum Total Protein 5.7 L (6.4-8.9) g/dL Albumin 3.4 L (3.5-5.7) g/dL Globulin 2.3 L (2.4-3.5) g/dL Albumin/Globulin Ratio 1.5 (1.1-2.2) Attestation Statement - Attestation Attestation: This documentation is done with the assistance of Dragon dictation. Despite efforts made to ensure accuracy, there may be inaccuracies in framing mill operator or spelling and typographical errors. I examined this patient and my medical decision-making was reviewed with the Resident Physician. I agree with the documented findings, disposition and treatment plan as described except to the extent set forth below. Patient seen and evaluated by Dr. Mcdaniel and myself, I agree with his evaluation and management plan, I supervised the care of the patient's stay. Patient sent from the cancer Center need of a blood transfusion. They miriam labs today came in his hemoglobin was low at 5.8. The type and crossed him but they could not get in touch with anybody in the transfusion center so they told him to come to the ER to be seen. They are he denies any other problems at this time. Were going to review his labs from the cancer center today and then order blood for his transfusion then admit.
--- NOTE | 2018-09-09 16:15 | Emergency Department Note ---
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 Patient states he has had anemia before and needed transfusions most recently was here one month ago. He received 7 bags of right blood cells. Patient states he does feel slightly lightheaded. Patient states he has had this before there is no known source of bleeding. Patient denies any trauma. Denies any nausea vomiting diarrhea constipation. Denies hematuria, hematochezia. Patient has not noted any swelling. States he has mild chest discomfort. Her shoulders. States that this happens when his hemoglobin is low. Pain Scale: 0 - Related Data Home Medications Medication Instructions Recorded Confirmed RX: Atorvastatin Calcium [Lipitor] 20 mg PO DAILY 04/01/18 09/09/18 RX: Metoprolol XL (24 HR) Succ 25 mg PO DAILY 04/01/18 09/09/18 [Toprol Xl] RX: Omeprazole [PriLOSEC] 20 mg PO DAILY PRN 04/01/18 09/09/18 Previous Rx's Medication Instructions Recorded RX: Ferrous Sulfate 324 mg PO BID #60 tablet. 05/22/18 Allergies Allergy/AdvReac Type Severity Reaction Status Date / Time No Known Allergies Allergy Verified 09/09/18 14:51 Constitutional: Denies: fever, chills, weakness Cardiovascular: Reports: chest pain. Denies: palpitations, dyspnea on exertion, orthopnea, edema Respiratory: Denies: cough, dyspnea, wheezes Gastrointestinal: Denies: abdominal pain, nausea, vomiting, diarrhea, constipation Genitourinary: Denies: urgency, dysuria, frequency Neurological: Denies: headache, weakness, numbness, paresthesias, confusion Psychiatric: Denies: anxiety, depression Past Medical History - Past Medical History Medical history: Reports: arthritis, cirrhosis, COPD, coronary artery disease, GERD, hepatitis, hyperlipidemia, hypertension, liver disease, myocardial infarction, other Surgical history: Reports: angioplasty/stent, colectomy, colostomy, herniorrhaph y, other Psychiatric history: Reports: no psych history - Social History Smoking Status: Current every day smoker Smokeless Tobacco Status: No Alcohol use: Reports: none Drug use: Reports: none Physical Exam She was sitting up in bed. He is pleasant and conversational. General inspection patient appears pale - General Limitations: no limitations General appearance: alert - Head Head exam: atraumatic, normocephalic - Eye Eye exam: Present: normal appearance, PERRL, EOMI - ENT ENT exam: normal exam, normal oropharynx - Neck Neck exam: Present: normal inspection - Chest Chest inspection: Present: symmetric chest wall rise. Absent: tenderness - Respiratory Respiratory exam: Present: normal lung sounds bilaterally, respiratory distress. Absent: wheezes, accessory muscle use - Cardiovascular Cardiovascular exam: Present: regular rate, normal rhythm, normal heart sounds, +S1, +S2. Absent: systolic murmur, diastolic murmur - Abdominal Exam Abdominal exam: Present: soft, tenderness, normal bowel sounds. Absent: distention, guarding, rebound, rigidity - Extremities Exam Extremities exam: Present: normal inspection. Absent: tenderness, normal capillary refill, pedal edema, calf tenderness Course Vital Signs Temperature 97.9 F 09/09/18 15:54 Pulse Rate 89 09/09/18 15:54 Respiratory Rate 16 09/09/18 15:54 Blood Pressure 146/79 09/09/18 15:54 O2 Sat by Pulse Oximetry 98 09/09/18 15:54 Temperature 97.9 F 09/09/18 15:54 Pulse Rate 65 09/09/18 17:27 Respiratory Rate 16 09/09/18 15:54 Blood Pressure 117/74 09/09/18 17:27 O2 Sat by Pulse Oximetry 100 09/09/18 17:27 Oxygen Delivery Oxygen Delivery Room Air Medical Decision Making - MDM Narrative Medical decision making narrative: Patient had lab drawn yesterday patient was typed and screened yesterday. 2 units packed red blood cells ordered. LFTs pending. Admit to floor for observation and transfusion. no known source of bleeding. Dr. Starks accepts to 3A
[2018-09-09 18:16] LABS: Albumin 3.4 g/dL (3.5-5.7); Albumin/Globulin Ratio 1.5 (1.1-2.2); Bilirubin,Direct 0.1 mg/dL (0.0-0.2); Bilirubin,Indirect 0.3 mg/dL (0.0-1.2); Bilirubin,Total 0.4 mg/dL (0.3-1.0); Globulin 2.3 g/dL (2.4-3.5); Total Protein 5.7 g/dL (6.4-8.9)
--- NOTE | 2018-09-09 18:24 | Internal Med History&Physical ---
<Osman Espinoza - Last Filed: 09/09/18 18:33> Date of Encounter: 09/09/18 Internal Medicine - H&P: HPI History of present illness: Mr. Coronel is a 58 year old male Past Med Surg Social Fam HX - Past Medical History Source: patient Internal Medicine - H&P: Meds Atorvastatin Calcium [Lipitor] 20 mg PO DAILY 04/01/18 [History] Metoprolol XL (24 HR) Succ [Toprol Xl] 25 mg PO DAILY 04/01/18 [History] Omeprazole [PriLOSEC] 20 mg PO DAILY PRN 04/01/18 [History] Ferrous Sulfate 324 mg PO BID #60 tablet. 05/22/18 [Rx] Allergy/AdvReac Type Severity Reaction Status Date / Time No Known Allergies Allergy Verified 09/09/18 14:51 All Systems PM: A 10-system review of systems was performed and is negative for pertinent findings except as documented above in the HPI. - Constitutional Vitals: Temp Pulse Resp BP Pulse Ox 97.9 F 65 16 117/74 100 09/09/18 15:54 09/09/18 17:27 09/09/18 15:54 09/09/18 17:27 09/09/18 17:27 Internal Med - H&P Results - Labs Labs: Liver Function 09/09/18 Range/Units 14:24 Total Bilirubin 0.4 (0.3-1.0) mg/dL Direct Bilirubin 0.1 (0.0-0.2) mg/dL AST 45 H (13-39) Units/L ALT 28 (7-52) Units/L Alkaline Phosphatase 87 (34-104) Units/L Albumin 3.4 L (3.5-5.7) g/dL - Assessment and plan (1) Anemia Current Visit: No Status: Chronic Qualifiers: Anemia type: unspecified type Qualified Code(s): D64.9 - Anemia, unspecified (2) Cirrhosis Current Visit: No Status: Chronic Qualifiers: Hepatic cirrhosis type: other cirrhosis Qualified Code(s): K74.69 - Other cirrhosis of liver (3) Hereditary hemochromatosis Current Visit: No Status: Chronic (4) HCC (hepatocellular carcinoma) Current Visit: No Status: Chronic (5) Hypertension Current Visit: No Status: Chronic Qualifiers: Hypertension type: essential hypertension Qualified Code(s): I10 - Essential (primary) hypertension (6) Tobacco abuse Current Visit: Yes Status: Chronic - Time Spent With Patient Total time spent is greater than 50% in coordination of care (as documented) at patient's floor/unit and/or counseling patient: - Attending Attestation I examined this patient and my medical decision-making was reviewed with the Resident Physician on 09/09/18. I agree with the documented findings, disposition and treatment plan as described except to the extent set forth below. 58 y/o male with HCC presented to ED with weakness. Found to be anemic - has happened before about a month ago. Has had work up with GI testing and bone marrow and negative. Sees oncologist in [place] this Saturday. Exam alert Pale. Comfortable Mucus membranes dry Heart reg and not tachy. No murmur Lungs with diffuse end exp wheeze Abd soft and nontender No edema Moves all extremities. Hgb 5.8 I/P 1. Anemia - iron normal. Transfuse tonight. Recheck in AM. Has follow up on Saturday. 2. HCC 3. Hereditary hemochromatosis 4. HTN 5. Cirrhosis 6. Tobacco abuse Further diagnoses and plan as above. Anticipate d/c tomorrow if stable. <Kylah Elizabeth - Last Filed: 09/09/18 21:18> Date of Encounter: 09/09/18 Time of Encounter: 18:23 Internal Medicine - H&P: HPI Chief complaint: Low hemoglobin Admitted From: Emergency Dept History of present illness: Mr. Coronel is a 58 year old male with a PMH of hepatocellular carcinoma, cirrhosis, hereditary hemochromatosis, recurrent GI bleeding, HTN, CAD s/p [place] who presents to [facility] ED from the Cancer Center due to a hemoglobin level of 5.8. He states that he has been experiencing increased fatigue and weakness over the last 2-3 days. He also has been experiencing bilateral collar bone pain that h is "tell tale sign" of acute anemia. Today he became acutely weak, had exertional fatigue and dizziness so he called the Cancer Center and was seen today, where his Hgb was found to be 5.8. He states that since they had no openings for transfusion they sent him to the ER. He notes that he often experiences red tinged or bright red blood in his stools. This has been increasing lately. He notes that he has had EGD/Colonoscopy and capsule endoscopies that have not found the source of bleeding. He has had a BMB he states is negative. He states that he has Stage 1 HCC, had a Y 90 treatment last March and states that his disease process is halted. He is still following with Dr. Bianchi, Dr. Baker for continued management. He sees Dr. Vázquez at [facility] Saturday and they are evaluating him for possible liver transplant. He is a current smoker and states he wheezes chronically and it has not worsened recently. He denies EWING, vision changes, fevers, chills, sore throat, congestion, ear pain, CP, SOB, n/v/d, abd pain. Past Med Surg Social Fam HX - Past Medical History Attestation: Yes The following information was validated with the patient. Source: patient, old records reviewed Medical history: arthritis, cirrhosis, COPD, coronary artery disease, GERD, hepatitis, hyperlipidemia, hypertension, liver disease, myocardial infarction, other Additional medical history: hepatocellular carcinoma Psychiatric history: no psych history - Past Surgical History Surgical History: angioplasty/stent, colectomy, colostomy, herniorrhaphy, other Additional surgical history: Y90 - Social History Smoking Status: Current every day smoker Smokeless Tobacco Status: No Alcohol use: none Drug use: none Current living situation: Home, With Family Activity Level: Independent ambulation Recent Out of Country Travel Within the Last 8 Weeks: No Exposure or Possible Exposure to Illness During Travel: No - Family History Mother Living Status: Hx Family Cardiac Disorders: Yes Father Living Status: Hx Family Cardiac Disorders: Yes (CHF and CAD) Hx Family Cancer: Yes Brother Living Status: Still Living Hx Family Cardiac Disorders: Yes (Open heart surgery) All Systems PM: A 10-system review of systems was performed and is negative for pertinent findings except as documented above in the HPI. - Constitutional Vitals: Temp Pulse Resp BP Pulse Ox 97.9 F 65 16 117/74 100 09/09/18 15:54 09/09/18 17:27 09/09/18 15:54 09/09/18 17:27 09/09/18 17:27 Exam: General: alert and oriented, WD/WN in NAD HEENT: NC/AT, PERRLA, EOMI, mucous membranes moist but pale, conjunctival pallor Cardio: RRR w/o MRG, pulses 2+ Respiratory: Diffuse inspiratory wheezing without rhonchi or rales, no cyanosis or clubbing, capillary refill greater than 3 seconds Abd: soft, non-tender, no guarding or rigidity, bs present, incisional hernia present adjacent to midline scar Extremities: non-tender, no edema, pulses 2+ Skin: warm, dry, intact, pale Neuro: alert and oriented, no acute deficits Psych: normal mood and affect Internal Med - H&P Results - Labs Labs: Liver Function 09/09/18 Range/Units 14:24 Total Bilirubin 0.4 (0.3-1.0) mg/dL Direct Bilirubin 0.1 (0.0-0.2) mg/dL AST 45 H (13-39) Units/L ALT 28 (7-52) Units/L Alkaline Phosphatase 87 (34-104) Units/L Albumin 3.4 L (3.5-5.7) g/dL - Assessment and plan (1) Anemia, blood loss Current Visit: Yes Status: Acute Assessment and plan: Pt here with blood loss anemia that is symptomatic at 5.8. Patient's anemia is related to multiple, recurrent, severe GI bleeding episodes requiring transfusions with normal Iron He has required numerous transfusions with several hospitalizations, most recent was 08/07/18 where he received 7 units PRBCs. He has had EGD, Colonoscopy and capsule studies that have not found bleeding source. He was referred to Dr. Vázquez at [facility] to see if he is a liver transplant candidate, scheduled on saturday. Has been feeling weak, fatigued, getting pale. Went to Cancer Center, HGB 5.8. They did not have openings for transfusions, sent to ED. Pt hemodynamically stable. Plan: -Regular diet -Up with assistance -Transfuse 4 units PRBCs, further transfusions based on response -Monitor CBC and VS -Avoid NSAIDS -Anticipate discharge home possibly tomorrow. -F/U with Dr. Bianchi Saturday as scheduled (2) HCC (hepatocellular carcinoma) Current Visit: Yes Status: Chronic Assessment and plan: History of hepatocellular carcinoma status post Y 90 treatment on 04/01/[address] Alcazar Follows with [facility] and Dr. Bianchi at the cancer center. (3) Cirrhosis Current Visit: Yes Status: Chronic Assessment and plan: History of alcohol-related liver cirrhosis with hypersplenism. He was previously seen by Dr. Van Vázquez at [facility] had an EGD, colonoscopy, enteroscopy, Endoscopy that did not identify the site of bleeding. There is a possibility that bleeding is from varices. He Did Have a TIPS Procedure on 09/28/2011 at [facility]. Plan: -F/U with Dr. 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 He has not required phlebotomies due to his bleeding history. (5) Tobacco abuse Current Visit: Yes Status: Chronic Assessment and plan: Chronic wheezing per patient Encourage cessation (6) CAD (coronary artery disease) Current Visit: Yes Status: Acute Assessment and plan: S/P [place], stable Qualifiers: Coronary Disease-Associated Artery/Lesion type: [place] artery [place] vs. transplanted heart: [place] heart Associated angina: without angina Qualified Code(s): I25.10 - Atherosclerotic heart disease of [place] coronary artery without angina pectoris (7) Hypertension Current Visit: Yes Status: Chronic Assessment and plan: Chronic, Continue home meds Qualifiers: Hypertension type: essential hypertension Qualified Code(s): I10 - Essential (primary) hypertension (8) Hyperlipidemia Current Visit: Yes Status: Chronic Assessment and plan: Chronic, continue statin Qualifiers: Hyperlipidemia type: mixed hyperlipidemia Qualified Code(s): E78.2 - Mixed hyperlipidemia - Time Spent With Patient Total time spent is greater than 50% in coordination of care (as documented) at patient's floor/unit and/or counseling patient:
[2018-09-09] MEDS ORDERED: Naloxone 0.4 MG/ML INJ IVP PRN (18:29)
[2018-09-09] MEDS ORDERED: 0.9 % Sodium Chloride 250 ML ONE (22:16)
[2018-09-10] MEDS ORDERED: 0.9 % Sodium Chloride 250 ML ONE ×2 (01:49→05:28)
[2018-09-10] MEDS ORDERED: Metoprolol XL (24 HR) Succ 25 MG TAB.ER.24H PO SCH (09:00)
--- NOTE | 2018-09-10 09:00 | Internal Med Progress Note ---
<Matthew Richey S - Last Filed: 09/10/18 10:07> Hospitalist Progress Note - Encounter Date of Encounter: 09/10/18 Time of Encounter: 08:30 - Subjective Interval History: Mr. Coronel states he is doing better than yesterday. He states he feels less tired. He still thinks he is pale, but states he is pale at home too. Patient denies fevers, chills, EWING, vision changes, CP, palpitations, SOB, n/v, abdominal pain, LE swelling or any skin rashes. He has been transfused 3U so far. Pending CBC results. He is a half-pack a day smoker - Exam Vitals: Temp Pulse Resp BP Pulse Ox 97.8 F 62 14 137/76 98 09/10/18 08:37 09/10/18 08:37 09/10/18 08:37 09/10/18 08:37 09/10/18 08:37 Exam: General: patient sitting upright in her chair, non-distressed Heart: RRR, no murmurs lungs: coarse lung sounds and diffuse wheezes heard b/l GI: non tender to palpation and bowel sounds present in all 4 quadrants Extremities: b/l stasis dermatitis w/ minimal non-pitting edema Skin: no rashes noted - Assessment and Plan (1) Anemia, blood loss Current Visit: Yes Status: Acute Assessment and Plan: Etiology: Unclear, possible GI loss -Pt here with blood loss anemia that is symptomatic at 5.8. -Patient's anemia is related to multiple, recurrent, severe GI bleeding episodes requiring transfusions with normal Iron -He has required numerous transfusions with several hospitalizations, most recent was 08/07/18 where he received 7 units PRBCs. -He has had EGD, Colonoscopy that have not found bleeding source and is scheduled to have a capsule study soon -He was referred to Dr. Vázquez at [facility] to see if he is a liver transplant candidate, scheduled on saturday. -Regular diet -Has been Transfused 3/4 units PRBCs, further transfusions based on response -Monitor CBC and VS -Avoid NSAIDS -Anticipate discharge home if h/h are stable and wnl -F/U with Dr. Bianchi Saturday as scheduled (2) CAD (coronary artery disease) Current Visit: Yes Status: Acute Assessment and Plan: S/P RI w/ stent placements, stable (3) Cirrhosis Current Visit: Yes Status: Chronic Assessment and Plan: etiology: alcohol, HCC, HH -He was previously seen by Dr. Van Vázquez at [facility] had an EGD, colonoscopy, enteroscopy, Endoscopy that did not identify the site of bleeding. -There is a possibility that bleeding is from varices. -He Did Have a TIPS Procedure on 09/28/2011 at [facility]. -F/U with Dr. Vázquez as scheduled on Saturday for evaluation -Avoid acetaminophen (4) HCC (hepatocellular carcinoma) Current Visit: Yes Status: Chronic Assessment and Plan: History of hepatocellular carcinoma status post Y 90 treatment on 04/01/[address] Alcazar Follow[facility] with [facility]chi [facility] the cancer center. 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 -He has not required phlebotomies due to his bleeding history. (6) Hyperlipidemia Current Visit: Yes Status: Chronic Assessment and Plan: Chronic, continue statin (7) Hypertension Current Visit: Yes Status: Chronic Assessment and Plan: Chronic, Continue home meds - Time Spent with Patient Total time spent is greater than 50% in coordination of care (as documented) at patient's floor/unit and/or counseling patient: 25 - 35 minutes Plan of Care Discussed with: patient Internal Medicine: Result - Labs Labs: Liver Function 09/09/18 Range/Units 14:24 Total Bilirubin 0.4 (0.3-1.0) mg/dL Direct Bilirubin 0.1 (0.0-0.2) mg/dL AST 45 H (13-39) Units/L ALT 28 (7-52) Units/L Alkaline Phosphatase 87 (34-104) Units/L Albumin 3.4 L (3.5-5.7) g/dL Consult Discharge Plan - Plan Referrals: Eri Brown CNP [Primary Care Provider] - 09/18/18 2:[address] Bianchi MD [Partnered Physician] - 09/15/18 9:10 am <hSae Mcnulty - Last Filed: 09/10/18 14:32> Hospitalist Progress Note - Encounter Date of Encounter: 09/10/18 Time of Encounter: 09:35 - Subjective Interval History: Patient is lying down in bed. Comfortable. Feels much better today. Denies any new episodes of GI bleeding. He has so far received 3 units of packed red blood cell transfusion. No complications. - Exam Vitals: Temp Pulse Resp BP Pulse Ox 98.4 F 61 14 121/72 96 09/10/18 11:44 09/10/18 11:44 09/10/18 11:44 09/10/18 11:44 09/10/18 11:44 - Assessment and Plan (1) Anemia Current Visit: Yes Status: Chronic Assessment and Plan: Acute on chronic anemia. Hemoglobin levels have improved after patient received 3 units PRBC transfusion. Hemoglobin 7.8 today. Recommended push enteroscopy by GI. Plan for this procedure later today. (2) Hereditary hemochromatosis Current Visit: Yes Status: Chronic Assessment and Plan: Continue outpatient follow-up. Not requiring phlebotomies and patient is actually anemic. (3) Hypertension Current Visit: Yes Status: Chronic Assessment and Plan: Blood pressure is well controlled at this time. Continue metoprolol (4) Tobacco abuse Current Visit: Yes Status: Chronic (5) HCC (hepatocellular carcinoma) Current Visit: Yes Status: Chronic Assessment and Plan: Follow-up with [facility] (6) Cirrhosis Current Visit: Yes Status: Chronic Assessment and Plan: continue supportive care. GI consult appreciated. - Time Spent with Patient Total time spent is greater than 50% in coordination of care (as documented) at patient's floor/unit and/or counseling patient: Internal Medicine: Result - Labs CBC & Chem 7: 09/10/18 09:38 09/10/18 09:38 Labs: Short CBC 09/10/18 Range/Units 09:38 WBC 2.3 L (4.3-11.1) K/mcL Hgb 7.8 L D (12.9-16.9) g/dL Hct 23.9 L (37.5-50.1) % Plt Count 135 L (140-400) K/mcL Neutrophils # 1.5 L (1.6-8.9) K/mcL BMP 09/10/18 09:38 Sodium 136 Potassium 4.3 Chloride 107 Carbon Dioxide 25 BUN 15 Creatinine 0.74 Glucose 303 H Calcium 8.4 L Liver Function 01/22/19 01/23/19 Range/Units 14:24 09:38 Total Bilirubin 0.4 1.1 H (0.3-1.0) mg/dL Direct Bilirubin 0.1 (0.0-0.2) mg/dL AST 45 H 43 H (13-39) Units/L ALT 28 27 (7-52) Units/L Alkaline Phosphatase 87 88 (34-104) Units/L Albumin 3.4 L 3.4 L (3.5-5.7) g/dL - ABG Interpretation ABG results: PT/INR, D-dimer PT 11.5 Seconds (9.4-12.1) 09/10/18 09:38 _ <Matthew Richey S - Last Filed: 09/10/18 10:07> (2) CAD (coronary artery disease) Qualifiers: Coronary Disease-Associated Artery/Lesion type: sy[place] artery [place] vs. transplanted heart: sycuan heart Associated angina: without angina Qualified Code(s): I25.10 - Atherosclerotic heart disease of [place] coronary artery without angina pectoris (3) Cirrhosis Qualifiers: Hepatic cirrhosis type: other cirrhosis Qualified Code(s): K74.69 - Other cirrhosis of liver (6) Hyperlipidemia Qualifiers: Hyperlipidemia type: mixed hyperlipidemia Qualified Code(s): E78.2 - Mixed hyperlipidemia (7) Hypertension Qualifiers: Hypertension type: essential hypertension Qualified Code(s): I10 - Essential (primary) hypertension <Shae Mcnulty - Last Filed: 09/10/18 14:32> (1) Anemia Qualifiers: Anemia type: unspecified type Qualified Code(s): D64.9 - Anemia, unspecified (3) Hypertension Qualifiers: Hypertension type: essential hypertension Qualified Code(s): I10 - Essential (primary) hypertension (6) Cirrhosis Qualifiers: Hepatic cirrhosis type: other cirrhosis Qualified Code(s): K74.69 - Other cirrhosis of liver
[2018-09-10 10:26] LABS: Alanine Aminotransferase 27 Units/L (7-52); Albumin 3.4 g/dL (3.5-5.7); Albumin/Globulin Ratio 1.4 (1.1-2.2); Alkaline Phosphatase 88 Units/L (34-104); Aspartate Amino Transferase 43 Units/L (13-39); BUN/Creatinine Ratio 20 (6-26); Bilirubin,Total 1.1 mg/dL (0.3-1.0); Blood Urea Nitrogen 15 mg/dL (8-23); Calcium 8.4 mg/dL (8.6-10.3); Carbon Dioxide 25 mEq/L (23-29); Chloride 107 mEq/L (98-107); Globulin 2.4 g/dL (2.4-3.5); Glucose 303 mg/dL (70-105); Osmolality,Calculated 294 (280-300); Potassium 4.3 mEq/L (3.5-5.1); Sodium 136 mEq/L (136-145); Total Protein 5.8 g/dL (6.4-8.9); eGFR For Non-African Americans > 60 (> 60)
[2018-09-10 10:30] LABS: Prothrombin Time 11.5 Seconds (9.4-12.1)
[2018-09-10 10:34] LABS: Basophils % 0.4 %; Eosinophils # 0.1 K/mcL (0.0-0.6); Eosinophils % 2.6 %; Hematocrit 23.9 % (37.5-50.1); Hemoglobin 7.8 g/dL (12.9-16.9); Immature Granulocytes % 0.4 % (0-4); Lymphocytes # 0.5 K/mcL (0.6-4.6); Lymphocytes % 19.8 %; Mean Corpuscular HGB Conc 32.6 g/dL (31.6-35.5); Mean Corpuscular Hemoglobin 30.6 pg (28.0-33.3); Mean Corpuscular Volume 93.7 fL (83.0-100.0); Mean Platelet Volume 11.9 fL (9.4-12.4); Monocytes # 0.3 K/mcL (0.0-1.3); Monocytes % 13.8 %; Neutrophils # 1.5 K/mcL (1.6-8.9); Platelet Count 135 K/mcL (140-400); Red Blood Count 2.55 M/mcL (4.19-5.50); Red Cell Distribution Width 15.8 % (11.5-14.5)
--- NOTE | 2018-09-10 11:14 | Gastroenterology Consult Note ---
<Carlos Dillon - Last Filed: 09/10/18 11:10> Date of Encounter: 09/10/18 Time of Encounter: 09:40 - Assessment and plan (1) Anemia Status: Acute Assessment and plan: Hgb 5.8 on 09/09 and 7.8 this AM after 3 units PRBC. Continue to monitor CBC and transfuse PRBC as needed. Pt had recent EGD 08/08/18 with grade 1 varices, possible Kaye's esophagus, and portal hypertensive gastropathy, no source of bleeding noted. Plan for push enteroscopy, will try to complete late this afternoon. Keep patient NPO. Qualifiers: Anemia type: unspecified type Qualified Code(s): D64.9 - Anemia, unspecified (2) Cirrhosis Status: Chronic Assessment and plan: MELD-Na 10, Child-Toribio class A-B. Patient is s/p TIPS in 2011. AFP 51,606 on 08/27/2018. Recommend 2-4 BM daily, use Lactulose if needed. Lifestyle Changes: 1. Total abstinence from alcohol including social drinking. 2. No smoking. 3. Gradual loss of weight. 4. Drink at least 3 cups of coffee due to its antioxidant effects in the liver, it reduces risk of HCC and advance fibrosis. 5. If needed, use less than 2 g/day of Tylenol (in divided doses). 6. Vaccination for Hep A, B, Pneumococcus if not already received and yearly influenza vaccination by PCP. 7. Avoid NSAIDS as can cause kidney damage. 8. Avoid benzodiazepines and other sedatives such as anti-histamines, narcotics etc. as can cause encephalopathy or confusion. 9. Take a late carbohydrate meal supplement as it reduces glucose production from protein breakdown and thus improves nutrition. 10. In cirrhosis, statins are safe to use and also improve portal hypertension and decrease risk of HCC. Qualifiers: Hepatic cirrhosis type: other cirrhosis Qualified Code(s): K74.69 - Other cirrhosis of liver (3) HCC (hepatocellular carcinoma) Status: Chronic Assessment and plan: s/p Y-90 treatment 04/01/2018. - Time Spent With Patient Total time spent is greater than 50% in coordination of care (as documented) at patient's floor/unit and/or counseling patient: GI History of Present Illness - Data of Consult Patient: known to practice within the last 3 years Consult date: 09/10/18 Requesting Physician: Shae Mcnulty MD - Consult Narrative Reason for consult: Anemia, HCC History of present illness: Mr. 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 He has an extensive history of anemia requiring transfusions, and does see Dr. Bianchi as outpatient. Hgb was found to be 5 on 08/06, and patientHgb was found to be 5 on 08/06, and EGD completed 08/08 with grade 1 varices, possible Kaye's esophagus, and portal hypertensive gastropathy, no source of bleeding noted. Hgb was 9.4 on discharge on 08/10 and up to 10.8 on 08/27. Hgb 5.8 on 09/09 and was sent to the ED for evaluation. He denies any melena or hematochezia. He states he has a capsule endoscopy scheduled for Saturday or Saturday. Procedures: EGD 08/08/2018 Dr. Strickland: Grade 1 varices, possible Kaye's esophagus, and portal hypertensive gastropathy, no source of bleeding noted. EGD 03/04/2018 Dr. Powell: Grade 1 varices, gastritis, portal hypertensive gastropathy, duodenitis. Colonoscopy 03/04/2018 Dr. Powell: Diverticulosis, internal hemorrhoids, 3 mm benign polyp. Colonoscopy 03/29/2015 Dr. Powell: Diverticulosis, tubular adenoma and hyperplastic polyps. NSAIDs: ASA Anticoagulation: None Past Med Surg Social Fam HX - Past Medical History Medical history: arthritis, cirrhosis, COPD, coronary artery disease, GERD, hepa titis, hyperlipidemia, hypertension, liver disease, myocardial infarction, other Additional medical history: hepatocellular carcinoma Psychiatric history: no psych history - Past Surgical History Surgical History: angioplasty/stent, colectomy, colostomy, herniorrhaphy, other Additional surgical history: Y90 - Social History Smoking Status: Current every day smoker Packs per day: 0.5 Smokeless Tobacco Status: No Alcohol use: none Drug use: none - Family History Mother Living Status: Hx Family Cardiac Disorders: Yes Father Living Status: Hx Family Cardiac Disorders: Yes (CHF and CAD) Hx Family Cancer: Yes Brother Living Status: Still Living Hx Family Cardiac Disorders: Yes (Open heart surgery) - Gastrointestinal Gastrointestinal: Present: as per HPI - Constitutional Constitutional: as per HPI - EENT Eyes: as per HPI Ears: Present: as per HPI Nose, mouth and throat: Present: as per HPI - Cardiovascular Cardiovascular ROS: Present: as per HPI - Respiratory Respiratory IM: Present: as per HPI - Genitourinary Genitourinary: Absent: change in color, Urinary frequency - Neurological ROS Neurological GI: Present: as per HPI - Hematologic/Lymphatic Hematologic/Lymphatic pediatric: Present: as per HPI - Musculoskeletal Musculoskeletal ROS GI: Present: as per HPI - Integumentary Integumentary GI: Present: as per HPI - Psychiatric ROS Psychiatric GI: Present: as per HPI - Endocrine Endocrine IM: Present: as per HPI - Constitutional Vitals: Temp Pulse Resp BP Pulse Ox 97.8 F 62 14 137/76 98 09/10/18 08:37 09/10/18 08:37 09/10/18 08:37 09/10/18 08:37 09/10/18 08:37 General appearance: Present: cooperative, A&O X 3, no acute distress, answers questions appropriately - Head Head exam: Present: atraumatic, normocephalic - Eye Eye exam: Present: normal appearance, sclera anicteric - ENT ENT exam: Present: mucous membranes moist - Neck Neck exam general surgery: Present: normal inspection, trachea midline - Respiratory Respiratory exam: Present: rhonchi, wheezes - Cardiovascular Cardiovascular exam: Present: RRR, +S1, +S2 - GI/Abdominal GI/Abdominal exam: Present: soft, no peritoneal signs. Absent: distended, firm, guarding, tenderness - Rectal Rectal exam: Present: deferred - Extremities Exam Extremities exam: Present: warm - Neurological Exam Neurological exam: Present: no focal deficits - Psychiatric Psychiatric exam: Present: normal affect, normal mood - Skin Skin exam: Present: dry, intact, normal color, warm Results - Labs CBC & Chem 7: 09/10/18 09:38 09/10/18 09:38 Labs: Last Result Calcium 8.4 mg/dL (8.6-10.3) L 09/10/18 09:38 Entire Visit Hgb 7.8 g/dL (12.9-16.9) L D 09/10/18 09:38 Hct 23.9 % (37.5-50.1) L 09/10/18 09:38 PT 11.5 Seconds (9.4-12.1) 09/10/18 09:38 Total Bilirubin 1.1 mg/dL (0.3-1.0) H 09/10/18 09:38 AST 43 Units/L (13-39) H 09/10/18 09:38 ALT 27 Units/L (7-52) 09/10/18 09:38 - ABG ABG results: PT/INR, D-dimer PT 11.5 Seconds (9.4-12.1) 09/10/18 09:38 Consult Discharge Plan - Plan Instructions: Upper Gastrointestinal Endoscopy (DC) Additional Instructions: Follow-up appointments: If there is not an appointment listed below, please call your physician and schedule a follow-up appointment. If you have congestive heart failure and your symptoms return, make an appointment with your physician. Medication List: Carry an up to date list of medications you are taking at all time. We have given you an updated medication list including any new medications that you have been prescribed. Please provide that list to your primary provider Symptoms: If your condition changes or you experience any of the following s ymptoms, notify your physician immediately: Unusual or worsening pain, fever, persistent nausea and vomiting, bleeding, increase in swelling (especially in your legs), sudden weight gain, extreme dizziness, chest pain, increased drainage or redness from a wound or incision. Go to the emergency department if you experience a problem with breathing. Weights: If you have a history of swelling or shortness of breath, weigh yourself daily and notify your physician if you have a weight gain of two or more pounds in one day or 5 or more pounds in a week. If you experience any of the warning signs for stroke: Sudden numbness or weakness of the face, arm or leg; especially on one side of the body, sudden confusion, trouble speaking or understanding, sudden trouble seeing in one or both eyes, sudden trouble walking, dizziness, loss of balance or coordination, sudden sever headache with no cause; Call 911 or go to the emergency room. Stroke is a medical emergency. Some risk factors for stroke: Age, cigarette smoking, diabetes, excessive alcohol consumption, family history, high blood pressure, overweight, physical inactivity, prior stroke, heart attack, diagnosis of carotid artery stenosis or other artery disease. If you smoke, STOP: Smoking or tobacco use significantly increases your risk of heart and lung disease. Your chance of disease greatly increases if you continue to smoke. For more information, call the [facility] tobacco quit line for smoking cessation 1-843-LBGL-NOW ( ) Referrals: Eri Brown CNP [Primary Care Provider] - 09/18/18 2:[address] Bianchi MD [Partnered Physician] - 09/15/18 9:10 am Prescriptions: Omeprazole [PriLOSEC] 40 mg PO DAILY PRN #60 capsule.dr HERMAN Reason: Heartburn <Marylou Powell - Last Filed: 09/11/18 15:07> Date of Encounter: 09/10/18 Time of Encounter: 13:00 - Time Spent With Patient Total time spent is greater than 50% in coordination of care (as documented) at patient's floor/unit and/or counseling patient: GI History of Present Illness - Data of Consult Requesting Physician: Shae Mcnulty MD - Consult Narrative History of present illness: Mr. Coronel is a 58 year old male - Constitutional Vitals: Temp Pulse Resp BP Pulse Ox 98.5 F 55 18 142/82 100 09/10/18 15:42 09/10/18 15:42 09/10/18 15:42 09/10/18 15:42 09/10/18 15:42 Results - Labs CBC & Chem 7: 09/10/18 09:38 09/10/18 09:38 Labs: Last Result Calcium 8.4 mg/dL (8.6-10.3) L 09/10/18 09:38 Entire Visit Hgb 7.8 g/dL (12.9-16.9) L D 09/10/18 09:38 Hct 23.9 % (37.5-50.1) L 09/10/18 09:38 PT 11.5 Seconds (9.4-12.1) 09/10/18 09:38 Total Bilirubin 1.1 mg/dL (0.3-1.0) H 09/10/18 09:38 AST 43 Units/L (13-39) H 09/10/18 09:38 ALT 27 Units/L (7-52) 09/10/18 09:38 - ABG ABG results: PT/INR, D-dimer PT 11.5 Seconds (9.4-12.1) 09/10/18 09:38 - Attending Attestation I have personally performed a face to face evaluation on this patient. I have reviewed and agree with the care plan. History and Exam by me shows: Patient seen. 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 He has an extensive history of anemia requiring t ransfusions, and does see Dr. Bianchi as outpatient. Admitted because of very low hemoglobin. On examination patient is very pale looking. Abdomen is benign. Assessment: Patient with history of cirrhosis hepatocellular carcinoma and long-standing history of anemia. Has been transfused. Recommendation: Enteroscopy today and if negative cap Endo as an outpatient
[2018-09-10 12:17] LABS: Lactate Dehydrogenase 157 Units/L (140-271)
--- NOTE | 2018-09-10 14:39 | Anesthesia Evaluation PreOp ---
Date of Encounter: 09/10/18 Time of Encounter: 14:37 - Past History Planned Operation: Push enteroscopy Cardiac History: CA, HTN, Hyperlipidemia, Cardiac Stent (x1) Pulmonary History: Smoker (40 years), COPD Other Medical History: Hepatic (Liver CA, Cirrhosis), Bleeding (Transfused with 3 units PRBC), Diabetes Type II, GERD (esophageal varacies) Anesthesia History: No Prior Anesthetic Complications, Past Anesthesia (EGD) Alcohol Use: none (quit heavy drinking 2 years ago) Drug use: none Medications and Allergies Atorvastatin Calcium [Lipitor] 20 mg PO DAILY 04/01/18 [History] Metoprolol XL (24 HR) Succ [Toprol Xl] 25 mg PO DAILY 04/01/18 [History] Omeprazole [PriLOSEC] 20 mg PO DAILY PRN 04/01/18 [History] Ferrous Sulfate 324 mg PO BID #60 tablet. 05/22/18 [Rx] Allergy/AdvReac Type Severity Reaction Status Date / Time No Known Allergies Allergy Verified 09/09/18 14:51 - Meds/Allergy Pre-op Review Medications Reviewed: Yes Allergies Reviewed: Yes Beta Blockers on Current Med List: Yes If Beta Blockers taken, Date/Time (Last Dose taken): 08:12 09/10/2018 Anesthesia Results - Labs 09/10/18 09:38 09/10/18 09:38 - Imaging EKG: report reviewed (Sinus rhythm with PACs Low voltage, precordial leads Possible anteroseptal infarct, old) Additional studies: 07/15/2015 Echo LVEF 60-65% moderate concentric LVH mildly dilated LV mild LV diastolic dysfunction grossly, RV appears mildly dilated with normal function severely dilated LA moderately dilated RA technically sub-optimal due to body habitus Anesthesia Exam Vital Signs/O2 Sat, Most Current Temp Pulse Resp BP Pulse Ox 98.4 F 61 14 121/72 96 09/10/18 11:44 09/10/18 11:44 09/10/18 11:44 09/10/18 11:44 09/10/18 11:44 NPO (# of Hours): > 8 Hrs Pain Scale: 0 Pain Scale Used: Numeric (1 - 10) - HEENT Pupil (Motor): Pupils equal, EOMI Mallampati: III Teeth: Normal Oral Opening: Greater than 3 - LOADING MANAGER LOC: Oriented LOADING MANAGER Motor: Normal RUE, Normal LUE, Normal RLE, Normal LLE, Normal Face LOADING MANAGER Sensory: Normal: RUE, LUE, RLE, LLE, Face - Cardiac Rhythm: Regular Murmur: None JVD: No Carotid Bruit: No - Pulmonary Breath Sounds: bilateral Clear Respiratory Effort: Symmetrical Anesthesia Assess/Plan ASA Score: 4 Level of consciousness: Cooperative Anesthetic Plan: MAC Autologous Blood: Yes Monitoring Plan: Standard Monitors Recovery Plan: PACU
[2018-09-10 15:45] VITALS: BP 142/82
[2018-09-10] MEDS ORDERED: Propofol 500 MG/50 ML INFUS..BTL ONE (15:47)
[2018-09-10] MEDS ORDERED: Lidocaine -MPF 2% 2 ML VIAL ONE (15:48)
--- NOTE | 2018-09-10 17:22 | Discharge Summary ---
<Janak Mcbride - Last Filed: 09/10/18 17:55> - NOTES TO OUTPATIENT PROVIDER Notes to Outpatient Provider: Patient admitted with anemia hemoglobin 5.8 and transfused 3 units PRBCs. EGD revealed grade 1 esophageal varices and nonbleeding duodenal ulcer. Patient's omeprazole dose was increased to 40 mg by mouth daily. Follow-up appointment scheduled with liver specialist 09/12/18 and with hematology/ oncology on 09/15/18. Orders not resulted at time of discharge: Pending orders 09/09/18 14:24 Red Blood Cells [BBK] Stat 09/10/18 16:15 Surgical Pathology [PTH] Routine 09/11/18 04:00 Basic Metabolic Panel AM 0400 CBC [Complete Blood Count] [HEME] AM 0400 Date of Encounter: 09/10/18 Time of Encounter: 10:00 - Discharge Diagnosis (1) Anemia Priority: Primary Status: Chronic Qualifiers: Anemia type: unspecified type Qualified Code(s): D64.9 - Anemia, unspecified (2) Cirrhosis Priority: Secondary Status: Chronic Qualifiers: Hepatic cirrhosis type: other cirrhosis Qualified Code(s): K74.69 - Other cirrhosis of liver (3) HCC (hepatocellular carcinoma) Priority: Secondary Status: Chronic (4) Hereditary hemochromatosis Priority: Secondary Status: Chronic (5) Hypertension Priority: Secondary Status: Chronic Qualifiers: Hypertension type: essential hypertension Qualified Code(s): I10 - Essential (primary) hypertension (6) Tobacco abuse Priority: Secondary Status: Chronic Hospital course: Mr. Coronel is a 58 year old male with a past medical history of hepatocellular carcinoma, cirrhosis, hypertension, tobacco dependence and CAD who was sent from hematology/oncology office due to anemia with hemoglobin 5.8. He was transfused 3 units PRBCs and repeat hemoglobin was 7.8. GI was consulted and EGD revealed grade 1 esophageal varices and nonbleeding duodenal ulcer. Patient's Omeprazole dose was increased to 40 mg by mouth daily. Follow-up appointments scheduled with liver specialist Dr. Vázquez at [facility] on 09/12/18 and with hematology/ oncology on 09/15/18. Discharge discussed with: patient, nurse - Time Spent with Patient Total time spent providing and/or coordinating discharge services: - Discharge Medications Prescriptions: RX: Omeprazole [PriLOSEC] 40 mg PO DAILY PRN #60 capsule.dr HERMAN Reason: Heartburn Home Medications: RX: Atorvastatin Calcium [Lipitor] 20 mg PO DAILY 04/01/18 [History] RX: Metoprolol XL (24 HR) Succ [Toprol Xl] 25 mg PO DAILY 04/01/18 [History] RX: Ferrous Sulfate 324 mg PO BID #60 tablet. 05/22/18 [Rx] RX: Omeprazole [PriLOSEC] 40 mg PO DAILY PRN #60 capsule. 09/10/18 [Rx] Allergies/Adverse Reactions: Allergy/AdvReac Type Severity Reaction Status Date / Time No Known Allergies Allergy Verified 09/09/18 14:51 Date of admission: 09/09/18 18:25 Primary care physician: Eri Brown CNP Consults: 09/09/18 18:29 Consult to Gastroenterology [CONS] Stat Consulting Provider: Gastroenterology Sarahy Reason for Consult: HCC and anemia Time Notified: 18:30 Call Completed: Yes Discharging clinician: Janak Mcbride Anticipated date of discharge: 09/10/18 - Constitutional Vitals: Temp Pulse Resp BP Pulse Ox 98.5 F 55 18 142/82 100 09/10/18 15:42 09/10/18 15:42 09/10/18 15:42 09/10/18 15:42 09/10/18 15:42 General appearance: Present: cooperative, A&O X 3, pleasant, no acute distress, answers questions appropriately Exam: awake - Head Head exam: Present: atraumatic, normocephalic - Eye Eye exam: Present: PERRL, conjuntiva pink, sclera anicteric Pupils: Present: PERRL - ENT ENT exam: Present: mucous membranes dry, normal oropharynx - Neck Neck exam general surgery: Present: supple, trachea midline. Absent: lymphadenopathy - Respiratory Respiratory exam: Present: CTAB. Absent: accessory muscle use, rales, rhonchi, wheezes - Cardiovascular Cardiovascular exam: Present: RRR, +S1, +S2. Absent: diastolic murmur, gallop, rubs, systolic murmur - GI/Abdominal GI/Abdominal exam: Present: normal bowel sounds, soft, no peritoneal signs. Absent: distended, tenderness - Extremities Exam Extremities exam: Present: warm, radial pulses palpable and symmetrical. Absent: calf tenderness, cyanotic, pedal edema - Back Exam Back exam: Present: normal inspection. Absent: paraspinal tenderness, tenderness - Neurological Exam Neurological exam: Present: CN II-XII intact, oriented X3, no focal deficits. Absent: pronater drift, facial droop, speech deficit - Psychiatric Psychiatric exam: Present: normal affect, normal mood - Skin Skin exam: Present: dry, intact, pallor, warm - Patient Status Disposition: Home, Self-Care Condition: Fair Functional capacity at discharge: independent ambulation Overall status at discharge: patient is progressing back to baseline - Discharge Instructions Instructions: Upper Gastrointestinal Endoscopy (DC) Follow Up With: Eri Brown CNP [Primary Care Provider] - 09/18/18 2:[address] Bianchi MD [Partnered Physician] - 09/15/18 9:10 am Additional Instructions: Follow-up appointments: If there is not an appointment listed below, please call your physician and schedule a follow-up appointment. If you have congestive heart failure and your symptoms return, make an appointment with your physician. Medication List: Carry an up to date list of medications you are taking at all time. We have given you an updated medication list including any new medications that you have been prescribed. Please provide that list to your primary provider Symptoms: If your condition changes or you experience any of the following symptoms, notify your physician immediately: Unusual or worsening pain, fever, persistent nausea and vomiting, bleeding, increase in swelling (especially in your legs), sudden weight gain, extreme dizziness, chest pain, increased drainage or redness from a wound or incision. Go to the emergency department if you experience a problem with breathing. Weights: If you have a history of swelling or shortness of breath, weigh yourself daily and notify your physician if you have a weight gain of two or more pounds in one day or 5 or more pounds in a week. If you experience any of the warning signs for stroke: Sudden numbness or weakness of the face, arm or leg; especially on one side of the body, sudden confusion, trouble speaking or understanding, sudden trouble seeing in one or both eyes, sudden trouble walking, dizziness, loss of balance or coordination, sudden sever headache with no cause; Call 911 or go to the emergency room. Stroke is a medical emergency. Some risk factors for stroke: Age, cigarette smoking, diabetes, excessive alcohol consumption, family history, high blood pressure, overweight, physical inactivity, prior stroke, heart attack, diagnosis of carotid artery stenosis or other artery disease. If you smoke, STOP: Smoking or tobacco use significantly increases your risk of heart and lung disease. Your chance of disease greatly increases if you continue to smoke. For more information, call the [place] tobacco quit line for smoking cessation 5-983-ET FQ-NOW ( ) - Diet and Activity Activity: increase activity as tolerated, resume usual activities as tolerated Diet: advance to your usual diet <Shae Mcnulty - Last Filed: 09/11/18 08:42> Orders not resulted at time of discharge: Pending orders 09/09/18 14:24 Red Blood Cells [BBK] Stat 09/10/18 16:15 Surgical Pathology [PTH] Routine 09/11/18 04:00 Basic Metabolic Panel AM 0400 CBC [Complete Blood Count] [HEME] AM 0400 Date of Encounter: 09/10/18 Time of Encounter: 17:49 - Discharge Diagnosis (1) Anemia Status: Chronic Qualifiers: Anemia type: unspecified type Qualified Code(s): D64.9 - Anemia, unspecified (2) Hereditary hemochromatosis Status: Chronic (3) Hypertension Status: Chronic Qualifiers: Hypertension type: essential hypertension Qualified Code(s): I10 - Essential (primary) hypertension (4) Tobacco abuse Status: Chronic (5) HCC (hepatocellular carcinoma) Status: Chronic (6) Cirrhosis Status: Chronic Qualifiers: Hepatic cirrhosis type: other cirrhosis Qualified Code(s): K74.69 - Other cirrhosis of liver Hospital course: Mr. Coronel is a 58 year old male - Time Spent with Patient Total time spent providing and/or coordinating discharge services: Date of admission: 09/09/18 18:25 Primary care physician: Eri Brown CNP Consults: 09/09/18 18:29 Consult to Gastroenterology [CONS] Stat Consulting Provider: Gastroenterology Sarahy Reason for Consult: HCC and anemia Time Notified: 18:30 Call Completed: Yes - Constitutional Vitals: Temp Pulse Resp BP Pulse Ox 98.5 F 55 18 142/82 100 09/10/18 15:42 09/10/18 15:42 09/10/18 15:42 09/10/18 15:42 09/10/18 15:42 - Attending Attestation I saw evaluated and examined this patient and my medical decision-making was reviewed with the Resident Physician, Janak Mcbride. I agree with the documented findings, disposition and treatment plan as described except to any changes set forth below. We independently had [id number] contact with the patient. Patient with history of hepatocellular carcinoma was hospitalized here with severe anemia. His hemoglobin on arrival was 5.8 He received 3 units PRBC transfusion and since then his been doing better. Patient was evaluated by GI and underwent push enteroscopy which did not show any active bleeding but she did have a nonbleeding duodenal ulcer and grade 1 esophageal varices. His been recommended PPI daily and outpatient capsule endoscopy which will be arranged. At this time patient is feeling much better and is stable to be discharged home. His hemoglobin this morning was 7.8. On exam, patient is awake and alert. He has pallor. Abdomen is soft, nontender. S1 and S2 are normal. Breath sounds are normal.
== END 2018-09-10 17:53 | disposition home or self-care (01) | DRG 812 ==
LOC: 3ANU 15:40 → EMEROOARM 15:40 → SUATTDRO 18:25 → 3ANU 18:47
PROVIDERS: ADMIT Hospitalist; ATTEND Internal Medicine